=== PATIENT | female | born 1965 | race Hispanic/Latino ===

== ENCOUNTER 2018-10-26 16:04 | Inpatient (IN) | payer MEDICARE, MEDICAID ==
[2018-10-26] MEDS ORDERED: ALPRAZolam 0.5 MG TAB PER TUBE PRN (20:39)
[2018-10-26] MEDS ORDERED: PHOS-NAK 1 PKT PACK PER TUBE PRN (20:45)
[2018-10-26] MEDS ORDERED: Sodium Bicarbonate Tab 325 MG TAB PER TUBE PRN (20:48)
[2018-10-26] MEDS: Calcium Carbonate 500 MG ChewTAB PER TUBE SCH (21:32)
[2018-10-26] MEDS: Carvedilol 3.125 MG TAB PER TUBE SCH (21:34)
[2018-10-26] MEDS: Ezetimibe 10 MG TAB PER TUBE SCH (21:34)
[2018-10-26] MEDS: Famotidine 20 MG TAB PER TUBE SCH (21:35)
[2018-10-26] MEDS: Lantus 1000 UNITS/10 ML VIAL SC SCH (21:36)
[2018-10-26] MEDS: Gabapentin 300 MG CAP PO SCH (21:36)
[2018-10-26] MEDS: Rosuvastatin 10 MG TAB PER TUBE SCH (21:37)
[2018-10-26] MEDS: Lisinopril 10 MG TAB PER TUBE SCH (21:37)
[2018-10-26] MEDS ORDERED: Sodium Chloride 0.9% 20 ML ONE (23:13)
[2018-10-27 05:57] LABS: #Basophils 0.1 thou/uL (0.0-0.2); #Eosinphils 0.1 thou/uL (0.0-0.7); #Lymphocytes 1.4 thou/uL (1.20-3.40); #Monocytes 0.4 thou/uL (0.11-0.59); #Neutrophils 4.6 thou/uL (1.40-6.50); %Basophils 1.1 % (0.0-1.0); %Eosinophils 1.9 % (0.0-10.0); %Lymphocytes 21.3 % (21.0-51.0); %Monocytes 6.5 % (0.0-10.0); %Neutrophils 69.3 % (42.0-75.0); Hemoglobin 9.8 g/dL (12.0-16.0); Mean Corpuscular HGB CONC 31.1 g/dL (32.0-36.0); Mean Corpuscular Volume 83.8 fL (78.0-98.0); Mean Platelet Volume 7.8 fL (7.4-10.4); Platelet Count 376 thou/uL (130-400); RBC Distribution Width 15.7 % (11.5-14.5); Red Blood Cell (RBC) Count 3.76 mill/uL (4.20-5.40); White Blood Cell (WBC) Count 6.6 thou/uL (4.8-10.8)
[2018-10-27 06:07] LABS: AST (SGOT) 38 U/L (5-34); Albumin 2.8 g/dL (3.5-5.0); Alkaline Phosphatase 179 U/L (40-150); Anion Gap 15 mmol/L (10-20); BUN (Urea Nitrogen) 7 mg/dL (9.8-20.1); Bilirubin, Total 0.3 mg/dL (0.2-1.2); Calc. Creatinine Clearance 147 mL/min (70-130); Calcium 9.3 mg/dL (7.8-10.44); Carbon Dioxide 29 mmol/L (22-29); Chloride 99 mmol/L (98-107); Estimated GFR-MDRD Greater than 90; Globulin 3.6 g/dL (2.4-3.5); Glucose 106 mg/dL (70-105); Protein, Total 6.4 g/dL (6.0-8.3); Sodium 139 mmol/L (136-145)
[2018-10-27 06:20] LABS: ALT (SGPT) 40 U/L (8-55)
[2018-10-27] MEDS: Lisinopril 10 MG TAB PER TUBE SCH ×2 (08:27→21:37)
[2018-10-27] MEDS: Gabapentin 300 MG CAP PO SCH ×2 (08:27→21:38)
[2018-10-27] MEDS: Fenofibrate Nanocrystallized 145 MG TAB PER TUBE SCH (08:27)
[2018-10-27] MEDS: Carvedilol 3.125 MG TAB PER TUBE SCH ×2 (08:27→21:38)
[2018-10-27] MEDS: Aspirin Chewable 81 MG TAB PER TUBE SCH (08:27)
[2018-10-27] MEDS: Loratadine 10 MG TAB PER TUBE SCH (08:28)
[2018-10-27] MEDS: Multivitamin W/ Minerals 1 TAB PER TUBE SCH (08:28)
[2018-10-27] MEDS: Hydrocodone-Acetamin 15 ML UDCUP PER TUBE PRN ×2 (08:28→21:40)
[2018-10-27] MEDS: Lantus 1000 UNITS/10 ML VIAL SC SCH ×2 (08:30→21:42)
[2018-10-27] MEDS ORDERED: Dextrose 5% in Water 1,000 ML IV PRN (13:10)
[2018-10-27] MEDS ORDERED: HumaLOG 300 UNITS/3 ML VIAL SC PRN (13:10)
[2018-10-27] MEDS ORDERED: Dextrose 50% Abboject 50 ML SYRINGE SLOW IVP PRN (13:10)
[2018-10-27] MEDS: HumaLOG 300 UNITS/3 ML VIAL SC PRN (13:46)
--- NOTE | 2018-10-27 16:45 | HP ---
CHIEF COMPLAINT: Status post complications from bariatric surgery, now for wound care, J-tube feeding, and close monitoring. BRIEF HISTORY: This is a very pleasant, 53-year-old, female, who is well known to me as I take care of most of her family, was admitted to the [facility] with a gastric leak. She actually had to have a gastric stent placed. She has a J-tube, and she is fed through it, and she is completely n.p.o. She has a midline wound, which requires wound care. Her drains were apparently removed, and she was felt to be a candidate for wound care on continued nutritional support and close monitoring of the wound and possible therapy and transferred here. Currently, the patient is sitting up in her chair and denies any complaints. She states the pain is controlled. She is tolerating her J-tube feeding. No fever or chills. PAST MEDICAL HISTORY: 1. Coronary artery disease. 2. Diabetes mellitus, type 2. 3. Hypertension. 4. Dyslipidemia. 5. Depression and anxiety. PAST SURGICAL HISTORY: 1. Coronary artery bypass grafting. 2. Tubal ligation. 3. Laparoscopic banding with later removal. 4. Pilonidal cystectomy. 5. Gastric sleeve with multiple repairs of gastric perforation as well as placement of J-tube and gastric stenting. MEDICATIONS: She has been transferred here on the following medications: 1. [place] Elixir 15 mL q.4 p.r.n. 2. Xanax 0.5 mg at bedtime p.r.n. 3. Aspirin 81 mg daily. 4. Tums 500 mg at bedtime. 5. Carvedilol 3.125 mg b.i.d. 6. Zetia 10 mg daily. 7. Pepcid 40 mg daily. 8. Fenofibrate 145 mg daily. 9. Diflucan 400 mg daily. 10. Gabapentin 300 mg b.i.d. 11. Lantus 21 units at bedtime and in the morning. 12. Lisinopril 10 mg daily. 13. Loratadine 10 mg daily. 14. Crestor 40 mg daily. 15. Zoloft 100 mg daily. ALLERGIES: TRAMADOL. FAMILY HISTORY: Noncontributory to current admission. PSYCHOSOCIAL HISTORY: No tobacco, alcohol, or recreational drug abuse. REVIEW OF SYSTEMS: CARDIOVASCULAR: Denies any chest pain, shortness of breath, palpitations, PND, orthopnea, or pedal edema. RESPIRATORY: Denies any chronic cough, expectoration, or pleuritic-type chest pain. GASTROINTESTINAL: See history of presenting illness. Denies any nausea, vomiting, diarrhea, hematemesis, melena, or hematochezia. GENITOURINARY: Denies any frequency, urgency, dysuria, or hematuria. CENTRAL NERVOUS SYSTEM: No focal numbness, weakness, or fainting spells. SHEENT: No difficulty with speech, vision, or hearing. She is n.p.o. Skin; denies any rash. PHYSICAL EXAMINATION: GENERAL: A very pleasant, 53-year-old, female, who is well known to me as I take care of her family, who is resting comfortably in chair and denies any complaints. She is alert, awake, and responsive. Her spouse is in the room. VITAL SIGNS: She is afebrile, heart rate 91, respirations 18, oxygen saturation 97% on room air, blood pressure 129/58. CARDIOVASCULAR: S1 and S2 plus. RESPIRATORY: Normal vesicular breath sounds. ABDOMEN: Soft and nontender. Bowel sounds heard in all quadrants. Midline wound with dressing. J-tube site is healthy. EXTREMITIES: Without cyanosis or clubbing. Peripheral pulses are palpable. CENTRAL NERVOUS SYSTEM: Awake and responsive. Cranial nerves 2 through 12 intact. Generalized weakness. LABORATORY VALUES: Show a white count of 6.6, H and H are 9.8 and 31.5. Sodium 139, potassium 4.0, BUN and creatinine 7 and 0.48. AST slightly elevated at 38, alkaline phosphatase slightly elevated at 179. Blood sugars are 94, 101, 268. IMPRESSION: 1. Coronary artery disease. 2. Diabetes mellitus, type 2. 3. Hypertension. 4. Dyslipidemia. 5. Depression and anxiety. 6. Complications from gastric sleeve resulting in gastric perforation requiring placement of gastric stent and J-tube placement and midline wound requiring wound care. PLAN: 1. Continue current medications. 2. Pain control. 3. J-tube feeding with Glucerna. 4. Accu-Cheks a.c. and at bedtime with mild sliding scale coverage. 5. PT and OT to eval and treat and for wound care. 6. Routine laboratory values. 7. Discussed with the patient in detail. All questions were answered. 8. The patient is low risk for DVT given her activity level. Does not need any Lovenox or PlexiPulses. Job ID: [id number]
[2018-10-27] MEDS: Calcium Carbonate 500 MG ChewTAB PER TUBE SCH (21:36)
[2018-10-27] MEDS: Rosuvastatin 10 MG TAB PER TUBE SCH (21:36)
[2018-10-27] MEDS: Famotidine 20 MG TAB PER TUBE SCH (21:37)
[2018-10-27] MEDS: Ezetimibe 10 MG TAB PER TUBE SCH (21:38)
[2018-10-27] MEDS: Fluconazole 40 mg/ml Oral Suspension PER TUBE SCH ×2 (21:39→23:20)
[2018-10-28] MEDS: Hydrocodone-Acetamin 15 ML UDCUP PER TUBE PRN ×3 (07:30→23:24)
[2018-10-28] MEDS ORDERED: Famotidine 20 MG TAB PER TUBE SCH (09:00)
[2018-10-28] MEDS: Multivitamin W/ Minerals 1 TAB PER TUBE SCH (09:17)
[2018-10-28] MEDS: Lisinopril 10 MG TAB PER TUBE SCH ×2 (09:17→20:41)
[2018-10-28] MEDS: Fenofibrate Nanocrystallized 145 MG TAB PER TUBE SCH (09:17)
[2018-10-28] MEDS: Lantus 1000 UNITS/10 ML VIAL SC SCH ×2 (09:18→20:38)
[2018-10-28] MEDS: Loratadine 10 MG TAB PER TUBE SCH (09:18)
[2018-10-28] MEDS: Aspirin Chewable 81 MG TAB PER TUBE SCH (09:18)
[2018-10-28] MEDS: Gabapentin 300 MG CAP PO SCH ×2 (09:18→20:40)
[2018-10-28] MEDS: Carvedilol 3.125 MG TAB PER TUBE SCH ×2 (09:18→20:41)
--- NOTE | 2018-10-28 11:23 | PRG ---
DATE OF SERVICE: 10/28/2018 SUBJECTIVE: Ms. Schultz is doing well except for heartburn. She apparently was on Pepcid b.i.d. and here she is only on once a day. We will change it to b.i.d. There was some confusion as to whether she was on Protonix, but she did get the famotidine 20 b.i.d. that initially ordered. She got one dose this morning and she stated it helped, so we will just switch her to 40 b.i.d. to keep it simpler. No other concerns or questions. OBJECTIVE: VITAL SIGNS: She is afebrile. Heart rate 94, respirations 18, oxygen saturation 98% on room air, blood pressure 129/58. CARDIOVASCULAR SYSTEM: S1 and S2 plus. RESPIRATORY SYSTEM: Normal vesicular breath sounds. ABDOMEN: Soft, nontender. J-tube site is healthy. Abdominal wound with dressing. EXTREMITIES: Without cyanosis or clubbing. CENTRAL NERVOUS SYSTEM: Awake and responsive. Cranial nerves 2 through 12 intact. Grossly nonfocal. IMPRESSION: 1. Gastric leak, status post gastric sleeve surgery, requiring multiple surgeries and stent placement, now with abdominal wound requiring wound care and J-tube feeding. 2. Diabetes mellitus, type 2. 3. Hypertension. 4. Dyslipidemia. 5. Coronary artery disease. 6. Depression and anxiety. 7. Gastroesophageal reflux disease. PLAN: 1. Increase the famotidine to 40 mg b.i.d. We would recommend suspension as she has a J-tube to reduce risk for clogging. 2. Nutritional support via J-tube. 3. Wound care. 4. Decubitus precautions. 5. Accu-Cheks with sliding scale coverage. 6. Routine laboratory values. 7. Discussed with the patient and spouse in detail. All questions answered. Job ID: [id number]
[2018-10-28] MEDS: HumaLOG 300 UNITS/3 ML VIAL SC PRN (11:56)
[2018-10-28] MEDS: Fluconazole 40 mg/ml Oral Suspension PER TUBE SCH (20:39)
[2018-10-28] MEDS: Famotidine 20 MG TAB PER TUBE SCH (20:39)
[2018-10-28] MEDS: Rosuvastatin 10 MG TAB PER TUBE SCH (20:40)
[2018-10-28] MEDS: Ezetimibe 10 MG TAB PER TUBE SCH (20:40)
[2018-10-28] MEDS: Calcium Carbonate 500 MG ChewTAB PER TUBE SCH (20:41)
[2018-10-29] MEDS: Hydrocodone-Acetamin 15 ML UDCUP PER TUBE PRN ×3 (03:32→21:52)
[2018-10-29] MEDS: Gabapentin 300 MG CAP PO SCH ×2 (08:20→21:40)
[2018-10-29] MEDS: Fenofibrate Nanocrystallized 145 MG TAB PER TUBE SCH (08:20)
[2018-10-29] MEDS: Lisinopril 10 MG TAB PER TUBE SCH ×2 (08:20→21:41)
[2018-10-29] MEDS: Multivitamin W/ Minerals 1 TAB PER TUBE SCH (08:21)
[2018-10-29] MEDS: Aspirin Chewable 81 MG TAB PER TUBE SCH (08:23)
[2018-10-29] MEDS: Famotidine 20 MG TAB PER TUBE SCH ×2 (08:23→21:41)
[2018-10-29] MEDS: Loratadine 10 MG TAB PER TUBE SCH (08:24)
[2018-10-29] MEDS: Carvedilol 3.125 MG TAB PER TUBE SCH ×2 (08:24→21:41)
[2018-10-29] MEDS: Lantus 1000 UNITS/10 ML VIAL SC SCH ×2 (08:25→21:39)
[2018-10-29] MEDS: HumaLOG 300 UNITS/3 ML VIAL SC PRN (12:53)
--- NOTE | 2018-10-29 16:18 | PRG ---
DATE OF SERVICE: 10/29/2018 SUBJECTIVE: Ms. Schultz is doing well. Her heartburn is much improved with famotidine twice daily. She would like something for sleep like melatonin. Nursing also wants to change her multivitamin to liquid form, so that we do not clog up the J-tube, which is a good idea. OBJECTIVE: VITAL SIGNS: She is afebrile. Heart rate is 99, respirations 18, oxygen saturation 99% on room air, blood pressure 132/63. CARDIOVASCULAR: S1-S2 plus. RESPIRATORY: Normal vesicular breath sounds. ABDOMEN: Soft, nontender. Bowel sounds heard in all quadrants. J-tube site is healthy. Wound with dressing. EXTREMITIES: Without cyanosis or clubbing. Peripheral pulses are palpable. CENTRAL NERVOUS SYSTEM: Grossly nonfocal. Awake and responsive. Cranial nerves 2 through 12 intact. LABORATORY DATA: Blood sugars are 136, 134, 146, and 167. IMPRESSION: 1. Gastric leak requiring gastric stent placement and multiple surgery. 2. J-tube placement to give the stomach the rest and to help with the healing process due to the gastric leak. 3. Diabetes mellitus type 2. 4. Hypertension. 5. Dyslipidemia. 6. Coronary artery disease. 7. Anxiety and depression. 8. Insomnia. PLAN: 1. Continue current medications. 2. Add melatonin 10 mg daily. 3. Change multivitamin to liquid. 4. Nutritional support through J-tube. 5. Monitor Accu-Cheks with sliding scale coverage. 6. Wound care. 7. Continue to stay active. 8. Weekly CBC and CMP. 9. Discussed with the patient in detail. 10. No family at bedside. Job ID: [id number]
[2018-10-29] MEDS: Fluconazole 40 mg/ml Oral Suspension PER TUBE SCH (21:39)
[2018-10-29] MEDS: Ezetimibe 10 MG TAB PER TUBE SCH (21:40)
[2018-10-29] MEDS: Rosuvastatin 10 MG TAB PER TUBE SCH (21:40)
[2018-10-29] MEDS: Melatonin 3 MG TAB PO PRN (21:41)
[2018-10-29] MEDS: Calcium Carbonate 500 MG ChewTAB PER TUBE SCH (21:41)
[2018-10-30] MEDS: Gabapentin 300 MG CAP PO SCH ×2 (09:51→21:19)
[2018-10-30] MEDS: Famotidine 20 MG TAB PER TUBE SCH ×2 (09:51→21:19)
[2018-10-30] MEDS: Lisinopril 10 MG TAB PER TUBE SCH ×2 (09:51→21:19)
[2018-10-30] MEDS: Fenofibrate Nanocrystallized 145 MG TAB PER TUBE SCH (09:51)
[2018-10-30] MEDS: Aspirin Chewable 81 MG TAB PER TUBE SCH (09:51)
[2018-10-30] MEDS: Multivitamin W/ Minerals 1 TAB PER TUBE SCH (09:51)
[2018-10-30] MEDS: Carvedilol 3.125 MG TAB PER TUBE SCH ×2 (09:51→21:19)
[2018-10-30] MEDS: Loratadine 10 MG TAB PER TUBE SCH (09:51)
[2018-10-30] MEDS: Lantus 1000 UNITS/10 ML VIAL SC SCH ×2 (09:52→21:21)
[2018-10-30] MEDS: Hydrocodone-Acetamin 15 ML UDCUP PER TUBE PRN ×2 (10:04→21:17)
[2018-10-30] MEDS: HumaLOG 300 UNITS/3 ML VIAL SC PRN (12:00)
[2018-10-30] MEDS: Loperamide HCl 2 MG CAP PO PRN (17:12)
[2018-10-30] MEDS: Calcium Carbonate 500 MG ChewTAB PER TUBE SCH (21:18)
[2018-10-30] MEDS: Melatonin 3 MG TAB PO PRN (21:18)
[2018-10-30] MEDS: Rosuvastatin 10 MG TAB PER TUBE SCH (21:19)
[2018-10-30] MEDS: Ezetimibe 10 MG TAB PER TUBE SCH (21:20)
[2018-10-30] MEDS: Fluconazole 40 mg/ml Oral Suspension PER TUBE SCH (21:21)
[2018-10-31] MEDS: Aspirin Chewable 81 MG TAB PER TUBE SCH (08:35)
[2018-10-31] MEDS: Carvedilol 3.125 MG TAB PER TUBE SCH ×2 (08:36→21:53)
[2018-10-31] MEDS: Gabapentin 300 MG CAP PO SCH ×2 (08:36→21:53)
[2018-10-31] MEDS: Fenofibrate Nanocrystallized 145 MG TAB PER TUBE SCH (08:36)
[2018-10-31] MEDS: Lantus 1000 UNITS/10 ML VIAL SC SCH ×2 (08:36→21:57)
[2018-10-31] MEDS: Loratadine 10 MG TAB PER TUBE SCH (08:37)
[2018-10-31] MEDS: Lisinopril 10 MG TAB PER TUBE SCH ×2 (08:37→21:51)
[2018-10-31] MEDS: Multivitamin W/ Minerals 1 TAB PER TUBE SCH (08:37)
[2018-10-31] MEDS: Hydrocodone-Acetamin 15 ML UDCUP PER TUBE PRN ×3 (08:38→21:57)
[2018-10-31] MEDS ORDERED: Sodium Chloride 0.9% 10 ML ONE (09:13)
[2018-10-31] MEDS: Pantoprazole 40 MG VIAL IVP SCH ×2 (09:37→21:51)
--- NOTE | 2018-10-31 14:00 | PRG ---
DATE OF SERVICE: 10/31/2018 SUBJECTIVE: Ms. Schultz is doing well except for breakthrough gastritis. She was switched to IV Protonix, and during IV Protonix, she had an episode of flushing, lightheadedness, and nausea, which looks like a vasovagal episode. She is up in her chair currently. She apparently accidentally drank about 3 to 4 mL of water and she is aware of the risks. No abdominal pain. OBJECTIVE: VITAL SIGNS: She is afebrile. Heart rate 97, respirations 20, oxygen saturation 95% on room air, blood pressure 120/82. CARDIOVASCULAR SYSTEM: S1 and S2 plus. RESPIRATORY SYSTEMS: Normal vesicular breath sounds. ABDOMEN: Soft and nontender. Bowel sounds heard in all quadrants. Abdominal incision with dressing. J-tube site is healthy. EXTREMITIES: Without cyanosis or clubbing. Peripheral pulses are palpable. LABORATORY DATA: Blood sugars are 138, 141, 117 and 168. IMPRESSION: 1. Gastric leak, status post bariatric surgery, requiring extensive surgeries, placement of gastric stent and now n.p.o. with J-tube feeding. 2. Gastritis, possibly alkaline, but she states that Protonix helps, so we will continue Protonix. 3. Diabetes mellitus, type 2. 4. Hypertension. 5. Dyslipidemia. 6. Coronary artery disease. 7. Depression and anxiety. PLAN: 1. Discontinue famotidine and continue IV Protonix. 2. Recheck CBC and CMP in the morning. 3. Continue nutritional support. 4. N.p.o. 5. Stay active. 6. J-tube care. 7. Wound care. 8. Modified barium swallow, 3 weeks from date of admission. Discussed with the patient and spouse in detail. All questions answered. Continue Accu-Cheks with sliding scale coverage. Job ID: [id number]
[2018-10-31] MEDS ORDERED: Pantoprazole 40 MG VIAL ONE (21:48)
[2018-10-31] MEDS: Calcium Carbonate 500 MG ChewTAB PER TUBE SCH (21:52)
[2018-10-31] MEDS: Rosuvastatin 10 MG TAB PER TUBE SCH (21:52)
[2018-10-31] MEDS: Ezetimibe 10 MG TAB PER TUBE SCH (21:52)
[2018-10-31] MEDS: Fluconazole 40 mg/ml Oral Suspension PER TUBE SCH (21:53)
[2018-10-31] MEDS: Melatonin 3 MG TAB PO PRN (21:53)
[2018-11-01 05:45] LABS: Anion Gap 13 mmol/L (10-20); BUN (Urea Nitrogen) 10 mg/dL (9.8-20.1); Calc. Creatinine Clearance 135 mL/min (70-130); Carbon Dioxide 30 mmol/L (22-29); Chloride 98 mmol/L (98-107); Estimated GFR-MDRD Greater than 90; Glucose 139 mg/dL (70-105); Potassium 4.3 mmol/L (3.5-5.1); Sodium 137 mmol/L (136-145)
[2018-11-01 05:54] LABS: Anisocytosis SLIGHT = 6-15 cells (100X) (0-5/hpf); Band 14 % (5-11); Eosinophils 2 % (0-10); Hemoglobin 8.4 g/dL (12.0-16.0); Hypochromia SLIGHT = 6-15 cells (100X) (0-5/hpf); Lymphocytes 40 % (21-51); MDiff Complete? YES; Mean Corpuscular HGB CONC 31.2 g/dL (32.0-36.0); Mean Corpuscular Volume 83.4 fL (78.0-98.0); Mean Platelet Volume 8.1 fL (7.4-10.4); Metamyelocyte 2 % (0-0); Monocytes 2 % (0-10); Neutrophil 40 % (42-75); Platelet Count 324 thou/uL (130-400); Platelet Morphology Comment Appears Adequate; RBC Distribution Width 16.3 % (11.5-14.5); Red Blood Cell (RBC) Count 3.23 mill/uL (4.20-5.40)
[2018-11-01] MEDS ORDERED: Pantoprazole 40 MG VIAL ONE (08:27)
[2018-11-01] MEDS ORDERED: Sodium Chloride 0.9% 10 ML ONE (08:32)
[2018-11-01] MEDS: Aspirin Chewable 81 MG TAB PER TUBE SCH (08:36)
[2018-11-01] MEDS: Gabapentin 300 MG CAP PO SCH ×2 (08:36→21:32)
[2018-11-01] MEDS: Lantus 1000 UNITS/10 ML VIAL SC SCH ×2 (08:36→21:28)
[2018-11-01] MEDS: Fenofibrate Nanocrystallized 145 MG TAB PER TUBE SCH (08:36)
[2018-11-01] MEDS: Carvedilol 3.125 MG TAB PER TUBE SCH ×2 (08:36→21:33)
[2018-11-01] MEDS: Multivitamin W/ Minerals 1 TAB PER TUBE SCH (08:37)
[2018-11-01] MEDS: Lisinopril 10 MG TAB PER TUBE SCH ×2 (08:37→21:27)
[2018-11-01] MEDS: Loratadine 10 MG TAB PER TUBE SCH (08:37)
[2018-11-01] MEDS: Hydrocodone-Acetamin 15 ML UDCUP PER TUBE PRN ×3 (08:38→21:27)
[2018-11-01] MEDS: Pantoprazole 40 MG VIAL IVP SCH ×2 (08:38→21:30)
[2018-11-01] MEDS: Sodium Chloride 0.9% (PF) 10 ML VIAL FS PRN (08:45)
[2018-11-01 13:00] VITALS: BMI 31.4
--- NOTE | 2018-11-01 13:57 | PRG ---
DATE OF SERVICE: 11/01/2018 SUBJECTIVE: Ms. Schultz is doing well. She states that she has had no further issues with heartburn since she has been on Protonix 40 mg IV b.i.d. She is tolerating her tube feeds. No fever or chills. Staying active and walking around. No concerns or questions. OBJECTIVE: VITAL SIGNS: She is afebrile. Heart rate 102, respirations 20, oxygen saturation 97% on room air, and blood pressure 135/63. CARDIOVASCULAR SYSTEM: S1 and S2 plus. RESPIRATORY SYSTEMS: Normal vesicular breath sounds. ABDOMEN: Soft, nontender. Bowel sounds heard in all quadrants. Abdominal wound with dressing. J-tube site is healthy. EXTREMITIES: Without cyanosis or clubbing. CENTRAL NERVOUS SYSTEM: Awake and responsive. Cranial nerves 2 through 12 intact. Generalized weakness. LABORATORY VALUES: White count is 7, H and H are is 8.4 and 26.9. Sodium 137, potassium 4.3, BUN and creatinine are 10 and 0.52. Blood sugars are 142, 143, 157, and 189. IMPRESSION: 1. Gastric leak, status post stent placement and extensive surgery. 2. Open abdominal wound, requiring wound care. 3. Stomach rest, requiring J-tube placement. 4. Diabetes mellitus, type 2, well controlled. 5. Hypertension. 6. Dyslipidemia. 7. Coronary artery disease. 8. Depression and anxiety. 9. Acid reflux and gastritis, doing much better with Protonix 40 mg IV b.i.d. PLAN: 1. Continue current medications. 2. Nutritional support through J-tube. 3. Wound care. 4. Decubitus precautions. 5. Stay active. 6. Monitor blood sugars. 7. Weekly laboratory values. 8. Discussed with the patient and nursing in detail. All questions answered. Job ID: [id number]
[2018-11-01] MEDS: Fluconazole 40 mg/ml Oral Suspension PER TUBE SCH (21:26)
[2018-11-01] MEDS: Rosuvastatin 10 MG TAB PER TUBE SCH (21:32)
[2018-11-01] MEDS: Ezetimibe 10 MG TAB PER TUBE SCH (21:32)
[2018-11-01] MEDS: Melatonin 3 MG TAB PO PRN (21:33)
[2018-11-01] MEDS: Calcium Carbonate 500 MG ChewTAB PER TUBE SCH (21:33)
[2018-11-02] MEDS: HumaLOG 300 UNITS/3 ML VIAL SC PRN ×3 (05:13→17:22)
[2018-11-02] MEDS: Multivitamin W/ Minerals 1 TAB PER TUBE SCH (08:52)
[2018-11-02] MEDS: Carvedilol 3.125 MG TAB PER TUBE SCH ×2 (08:53→21:07)
[2018-11-02] MEDS: Fenofibrate Nanocrystallized 145 MG TAB PER TUBE SCH (08:53)
[2018-11-02] MEDS: Aspirin Chewable 81 MG TAB PER TUBE SCH (08:53)
[2018-11-02] MEDS: Loratadine 10 MG TAB PER TUBE SCH (08:53)
[2018-11-02] MEDS: Gabapentin 300 MG CAP PO SCH ×2 (08:53→21:08)
[2018-11-02] MEDS: Lisinopril 10 MG TAB PER TUBE SCH ×2 (08:53→21:08)
[2018-11-02] MEDS: Lantus 1000 UNITS/10 ML VIAL SC SCH (08:53)
[2018-11-02] MEDS: Hydrocodone-Acetamin 15 ML UDCUP PER TUBE PRN ×3 (08:54→21:12)
[2018-11-02] MEDS: Pantoprazole 40 MG VIAL IVP SCH (08:56)
[2018-11-02] MEDS: Sodium Chloride 0.9% (PF) 10 ML VIAL FS PRN (08:56)
[2018-11-02] MEDS ORDERED: Sodium Chloride 0.9% 20 ML ONE (09:00)
[2018-11-02] MEDS: Calcium Carbonate 500 MG ChewTAB PER TUBE SCH (21:07)
[2018-11-02] MEDS: Ezetimibe 10 MG TAB PER TUBE SCH (21:08)
[2018-11-02] MEDS: Pantoprazole 40 MG GRANULES PACKET PER TUBE SCH (21:09)
[2018-11-02] MEDS: Rosuvastatin 10 MG TAB PER TUBE SCH (21:09)
[2018-11-02] MEDS ORDERED: Sodium Bicarbonate Tab 325 MG TAB PER TUBE PRN (22:09)
[2018-11-03] MEDS: Lantus 1000 UNITS/10 ML VIAL SC SCH ×3 (01:13→21:39)
[2018-11-03] MEDS: HumaLOG 300 UNITS/3 ML VIAL SC PRN ×2 (05:50→12:33)
[2018-11-03] MEDS: Hydrocodone-Acetamin 15 ML UDCUP PER TUBE PRN ×3 (07:48→16:54)
[2018-11-03] MEDS: Carvedilol 3.125 MG TAB PER TUBE SCH ×2 (09:42→21:38)
[2018-11-03] MEDS: Fenofibrate Nanocrystallized 145 MG TAB PER TUBE SCH (09:42)
[2018-11-03] MEDS: Gabapentin 300 MG CAP PO SCH ×2 (09:42→21:38)
[2018-11-03] MEDS: Lisinopril 10 MG TAB PER TUBE SCH ×2 (09:42→21:39)
[2018-11-03] MEDS: Aspirin Chewable 81 MG TAB PER TUBE SCH (09:43)
[2018-11-03] MEDS: Multivitamin W/ Minerals 1 TAB PER TUBE SCH (09:43)
[2018-11-03] MEDS: Pantoprazole 40 MG GRANULES PACKET PER TUBE SCH (09:43)
[2018-11-03] MEDS: Loratadine 10 MG TAB PER TUBE SCH (09:43)
[2018-11-03 13:04] LABS: Mean Corpuscular HGB CONC 31.6 g/dL (32.0-36.0); Mean Corpuscular Hemoglobin 26.3 pg (27.0-31.0); Mean Corpuscular Volume 83.2 fL (78.0-98.0); Mean Platelet Volume 8.1 fL (7.4-10.4); Platelet Count 352 thou/uL (130-400); RBC Distribution Width 16.5 % (11.5-14.5); Red Blood Cell (RBC) Count 3.41 mill/uL (4.20-5.40)
[2018-11-03 13:27] LABS: #Basophils 0.1 thou/uL (0.0-0.2); #Eosinphils 0.4 thou/uL (0.0-0.7); #Lymphocytes 2.1 thou/uL (1.20-3.40); #Monocytes 1.1 thou/uL (0.11-0.59); #Neutrophils 4.3 thou/uL (1.40-6.50); %Basophils 1.3 % (0.0-1.0); %Lymphocytes 26.5 % (21.0-51.0); %Monocytes 13.4 % (0.0-10.0); %Neutrophils 53.9 % (42.0-75.0); Differential Comment SCANNED
--- NOTE | 2018-11-03 13:51 | PRG ---
DATE OF SERVICE: 11/03/2018 SUBJECTIVE: Ms. Schultz is doing the same. Denies any complaints other than pain, and the hydrocodone suspension is helping. Discussed with nursing and they apparently are noticing some mild odor to the drainage from her abdominal wound. They have sent it out for culture and I advised them to do a CBC stat. No fever or chills. For some reason, her Protonix was changed to via tube and that was causing some occlusion issues with the J-tube and I had the nursing switch it back to IV. OBJECTIVE: VITAL SIGNS: She is afebrile, heart rate 105, respirations 20, oxygen saturation 98% on room air, and blood pressure 135/63. CARDIOVASCULAR SYSTEM: S1 and S2 plus. RESPIRATORY SYSTEM: Normal vesicular breath sounds. ABDOMEN: Soft. Minimal tenderness. J-tube site is healthy. Abdominal wound with dressing. EXTREMITIES: Without cyanosis or clubbing. CENTRAL NERVOUS SYSTEM: Awake and responsive. Cranial nerves 2 through 12 intact. LABORATORY VALUES: White count is 8, H and H are 9 and 28.4. Accu-Chek shows 192, 228, 160, 128, 182, and 218. IMPRESSION: 1. Abdominal wound, requiring wound care. Rule out infection. 2. Gastric leak, requiring gastric stent placement and now n.p.o. 3. J-tube for nutrition. 4. Diabetes mellitus, type 2. 5. Hypertension. 6. Dyslipidemia. 7. Coronary artery disease. 8. Depression and anxiety. PLAN: 1. Await microbiology of the wound culture. Currently, no clinical signs of infection other than the mild change in odor. 2. Empiric Bactrim since initial culture grew Stenotrophomonas. It was sensitive to Bactrim, but we are going to hold it unless there are any further signs. 3. Nutritional support. 4. DVT and stress ulcer prophylaxis. 5. Decubitus precautions. 6. Accu-Cheks. 7. Pain control. 8. J-tube and wound care. 9. Discussed with the patient and nursing. Job ID: [id number]
[2018-11-03] MEDS ORDERED: Sodium Chloride 0.9% 20 ML ONE (20:50)
[2018-11-03] MEDS: Ondansetron PF 4 MG/2 ML Vial IVP PRN (21:00)
[2018-11-03] MEDS: Sodium Chloride 0.9% (PF) 10 ML VIAL FS PRN (21:05)
[2018-11-03] MEDS: Pantoprazole 40 MG VIAL IVP SCH (21:05)
[2018-11-03] MEDS: Calcium Carbonate 500 MG ChewTAB PER TUBE SCH (21:38)
[2018-11-03] MEDS: Ezetimibe 10 MG TAB PER TUBE SCH (21:38)
[2018-11-03] MEDS: Rosuvastatin 10 MG TAB PER TUBE SCH (21:39)
[2018-11-04] MEDS: HumaLOG 300 UNITS/3 ML VIAL SC PRN ×2 (05:13→12:38)
[2018-11-04] MEDS ORDERED: Sodium Chloride 0.9% 10 ML ONE (08:30)
[2018-11-04] MEDS: Ondansetron PF 4 MG/2 ML Vial IVP PRN ×2 (09:17→20:09)
[2018-11-04] MEDS: Carvedilol 3.125 MG TAB PER TUBE SCH ×2 (09:18→20:14)
[2018-11-04] MEDS: Loratadine 10 MG TAB PER TUBE SCH (09:18)
[2018-11-04] MEDS: Pantoprazole 40 MG VIAL IVP SCH ×2 (09:18→20:11)
[2018-11-04] MEDS: Fenofibrate Nanocrystallized 145 MG TAB PER TUBE SCH (09:19)
[2018-11-04] MEDS: Multivitamin W/ Minerals 1 TAB PER TUBE SCH (09:19)
[2018-11-04] MEDS: Gabapentin 300 MG CAP PO SCH ×2 (09:19→20:13)
[2018-11-04] MEDS: Lisinopril 10 MG TAB PER TUBE SCH ×2 (09:19→20:13)
[2018-11-04] MEDS: Aspirin Chewable 81 MG TAB PER TUBE SCH (09:19)
[2018-11-04] MEDS: Lantus 1000 UNITS/10 ML VIAL SC SCH ×2 (09:21→21:34)
--- NOTE | 2018-11-04 10:26 | PRG ---
DATE OF SERVICE: 11/04/2018 SUBJECTIVE: Ms. Schultz is doing well. Denies any complaints. Resting comfortably. There was some concern for a more foul smelling drainage from her wound yesterday, so it was sent up for cultures. Stat CBC was done, which showed normal white count. Clinically, no signs of infection. I looked at the wound today and the abdominal wound is healthy. There is minimal slough, it was less than 5%. No purulent drainage. No erythema suggestive of infection. I also talked to the wound care nurse from therapy, who has been doing the wound and she also feels that it is healing as expected. It still has enough drainage that wound dressing needs to be changed twice daily. She does have an appointment with Dr. Yuen next Wednesday. Her wound culture preliminary is growing gram-negative rods, but I am not going to start her on any antibiotics since this is not a sterile wound and not unusual to have contamination. Discussed with the patient and and all questions answered. OBJECTIVE: VITAL SIGNS: She is afebrile, heart rate is 107, respirations 20, oxygen saturation 95%, blood pressure is 130/60. When she was walking, her heart rate went up to 113. CARDIOVASCULAR SYSTEM: S1 and S2 plus. RESPIRATORY SYSTEM: Normal vesicular breath sounds. ABDOMEN: Soft. Minimal tenderness. Bowel sounds heard in all quadrants. J-tube site is healthy. EXTREMITIES: Without cyanosis or clubbing. CENTRAL NERVOUS SYSTEM: Awake and responsive. Cranial nerves 2 through 12 intact. Generalized weakness. LABORATORY DATA: White count is 8, H and H are 9 and 28, for this is from yesterday. Blood sugars are 128, 182, 218, 129, and 169. IMPRESSION: 1. Abdominal wound healing nicely without any evidence for infection. 2. Gastric leak requiring gastric stent and J-tube placement. 3. Diabetes mellitus, type 2. 4. Hypertension. 5. Dyslipidemia. 6. Coronary artery disease. 7. Depression and anxiety. PLAN: 1. Continue current medications. 2. Wound care. 3. Nutritional support through J-tube. 4. N.p.o. 5. No need for antibiotics at this time. 6. Stay active. 7. Followup appointment with Dr. Yuen on Wednesday. 8. Continue wound care twice daily. 9. Dr. Blanca on-call this weekend. Job ID: [id number]
[2018-11-04] MEDS: Hydrocodone-Acetamin 15 ML UDCUP PER TUBE PRN (17:35)
[2018-11-04] MEDS: Calcium Carbonate 500 MG ChewTAB PER TUBE SCH (20:14)
[2018-11-04] MEDS: Rosuvastatin 10 MG TAB PER TUBE SCH (20:14)
[2018-11-04] MEDS: Ezetimibe 10 MG TAB PER TUBE SCH (20:14)
[2018-11-05] MEDS: HumaLOG 300 UNITS/3 ML VIAL SC PRN ×3 (05:21→17:24)
[2018-11-05] MEDS: Hydrocodone-Acetamin 15 ML UDCUP PER TUBE PRN ×3 (09:16→19:12)
[2018-11-05] MEDS: Aspirin Chewable 81 MG TAB PER TUBE SCH (09:17)
[2018-11-05] MEDS: Gabapentin 300 MG CAP PO SCH ×2 (09:18→20:55)
[2018-11-05] MEDS: Fenofibrate Nanocrystallized 145 MG TAB PER TUBE SCH (09:18)
[2018-11-05] MEDS: Lisinopril 10 MG TAB PER TUBE SCH ×2 (09:18→20:57)
[2018-11-05] MEDS: Loratadine 10 MG TAB PER TUBE SCH (09:18)
[2018-11-05] MEDS: Carvedilol 3.125 MG TAB PER TUBE SCH ×2 (09:18→20:55)
[2018-11-05] MEDS: Lantus 1000 UNITS/10 ML VIAL SC SCH ×2 (09:18→21:11)
[2018-11-05] MEDS: Multivitamin W/ Minerals 1 TAB PER TUBE SCH (09:18)
[2018-11-05] MEDS: Pantoprazole 40 MG VIAL IVP SCH ×2 (09:19→20:45)
[2018-11-05] MEDS: Sodium Chloride 0.9% (PF) 10 ML VIAL FS PRN ×2 (09:19→20:45)
[2018-11-05] MEDS ORDERED: Sodium Chloride 0.9% 10 ML ONE (10:02)
[2018-11-05] MEDS: Ondansetron PF 4 MG/2 ML Vial IVP PRN ×2 (10:05→19:11)
[2018-11-05] MEDS ORDERED: Sodium Chloride 0.9% 20 ML ONE (19:10)
[2018-11-05 19:11] LABS: #Basophils 0.1 thou/uL (0.0-0.2); #Eosinphils 0.5 thou/uL (0.0-0.7); #Monocytes 1.1 thou/uL (0.11-0.59); #Neutrophils 5.4 thou/uL (1.40-6.50); %Basophils 0.9 % (0.0-1.0); %Eosinophils 5.4 % (0.0-10.0); %Lymphocytes 21.9 % (21.0-51.0); %Monocytes 11.9 % (0.0-10.0); %Neutrophils 59.8 % (42.0-75.0); Hemoglobin 8.9 g/dL (12.0-16.0); Mean Corpuscular HGB CONC 31.4 g/dL (32.0-36.0); Mean Corpuscular Hemoglobin 26.2 pg (27.0-31.0); Mean Corpuscular Volume 83.3 fL (78.0-98.0); Mean Platelet Volume 7.7 fL (7.4-10.4); Platelet Count 332 thou/uL (130-400); Red Blood Cell (RBC) Count 3.39 mill/uL (4.20-5.40); White Blood Cell (WBC) Count 9.1 thou/uL (4.8-10.8)
[2018-11-05 19:30] LABS: Lactic Acid 1.3 mmol/L (0.5-2.2)
[2018-11-05 19:37] LABS: ALT (SGPT) 15 U/L (8-55); AST (SGOT) 20 U/L (5-34); Albumin 2.7 g/dL (3.5-5.0); Alkaline Phosphatase 95 U/L (40-150); Anion Gap 16 mmol/L (10-20); BUN (Urea Nitrogen) 11 mg/dL (9.8-20.1); Bilirubin, Total 0.3 mg/dL (0.2-1.2); Calc. Creatinine Clearance 123 mL/min (70-130); Calcium 8.9 mg/dL (7.8-10.44); Carbon Dioxide 26 mmol/L (22-29); Chloride 97 mmol/L (98-107); Estimated GFR-MDRD Greater than 90; Globulin 3.7 g/dL (2.4-3.5); Glucose 133 mg/dL (70-105); Potassium 4.1 mmol/L (3.5-5.1); Protein, Total 6.4 g/dL (6.0-8.3); Sodium 135 mmol/L (136-145)
[2018-11-05] MEDS: Ezetimibe 10 MG TAB PER TUBE SCH (20:55)
[2018-11-05] MEDS: Rosuvastatin 10 MG TAB PER TUBE SCH (20:55)
[2018-11-05] MEDS: Calcium Carbonate 500 MG ChewTAB PER TUBE SCH (20:55)
--- NOTE | 2018-11-06 08:29 | PRG ---
DATE OF SERVICE: 11/05/2018 SUBJECTIVE: The patient is an unfortunate 53-year-old female, who has undergone a gastric sleeve, but developed complications of leakage of the gastric surgery requiring gastric stent and J-tube placement. She has comorbidities of type 2 diabetes, which has been well controlled and hypertension, but at present, she is on carvedilol and lisinopril and is having borderline low blood pressure. She has been found to have an MRSA in the wound, but has had no evidence of sepsis or cellulitis around the wound. She is feeling well, walking in the room. No complaints. LABORATORY DATA: Shows sodium 135, potassium 4.1, chloride 97, bicarb 26, BUN 11, creatinine 0.58, glucose 133, lactate 1.3, calcium 8.9, and albumin 2.7, which is slightly lower than last week. Abdominal wound is open and deep, but appears to be very clean. No evidence of slough or drainage. ASSESSMENT: 1. Large abdominal wound healing slowly and tension with no evidence of infection. 2. Gastric sleeve, status post perforation requiring stent and J-tube treatment. Tolerating well. 3. Type 2 diabetes with adequate control. 4. Hypertension, but now with hypotension on carvedilol and lisinopril. PLAN: Decrease dose of lisinopril to 10 mg daily and continue carvedilol at 3.125 twice daily. Continue off antibiotics and monitor closely. Job ID: [id number]
[2018-11-06] MEDS ORDERED: Sodium Chloride 0.9% 10 ML ONE (08:42)
[2018-11-06] MEDS: Hydrocodone-Acetamin 15 ML UDCUP PER TUBE PRN ×3 (09:21→20:35)
[2018-11-06] MEDS: Pantoprazole 40 MG VIAL IVP SCH ×2 (09:29→20:41)
[2018-11-06] MEDS: Sodium Chloride 0.9% (PF) 10 ML VIAL FS PRN ×2 (09:29→20:41)
[2018-11-06] MEDS: Fenofibrate Nanocrystallized 145 MG TAB PER TUBE SCH (09:38)
[2018-11-06] MEDS: Gabapentin 300 MG CAP PO SCH ×2 (09:38→20:47)
[2018-11-06] MEDS: Loratadine 10 MG TAB PER TUBE SCH (09:38)
[2018-11-06] MEDS: Aspirin Chewable 81 MG TAB PER TUBE SCH (09:38)
[2018-11-06] MEDS: Lisinopril 10 MG TAB PER TUBE SCH (09:38)
[2018-11-06] MEDS: Lantus 1000 UNITS/10 ML VIAL SC SCH ×2 (09:39→20:49)
[2018-11-06] MEDS: Carvedilol 3.125 MG TAB PER TUBE SCH ×2 (09:39→20:49)
[2018-11-06] MEDS: Multivitamin W/ Minerals 1 TAB PER TUBE SCH (09:40)
[2018-11-06] MEDS: HumaLOG 300 UNITS/3 ML VIAL SC PRN ×2 (12:19→17:21)
[2018-11-06] MEDS ORDERED: Sodium Chloride 0.9% 20 ML ONE (20:31)
[2018-11-06] MEDS: Vancomycin HCl 1 GM in Sodium Chloride 0.9% 250 ML 250 ML IVPB SCH (20:34)
[2018-11-06] MEDS: Ezetimibe 10 MG TAB PER TUBE SCH (20:47)
[2018-11-06] MEDS: Calcium Carbonate 500 MG ChewTAB PER TUBE SCH (20:47)
[2018-11-06] MEDS: Rosuvastatin 10 MG TAB PER TUBE SCH (20:48)
--- NOTE | 2018-11-06 21:36 | PRG ---
DATE OF SERVICE: 11/06/2018 SUBJECTIVE: The patient complains of increased foul-smelling drainage from her abdomen with no fever, chills, or tenderness. OBJECTIVE: VITAL SIGNS: Show blood pressure is 120/65, temperature is 97, pulse 97, respirations 20, O2 sats 97% on room air. LABORATORY DATA: Shows Accu-Cheks slightly elevated at 147, 232. White count yesterday was 9100. Cultures, however, showing are growing Enterobacter, Klebsiella, MRSA, and presumptive Enterococcus. Wound appears to be having more foul-smelling drainage, increasing daily. ASSESSMENT: 1. Increasing drainage from abdominal incision site of previous peritonitis. 2. Gastric sleeve, status post perforation requiring stent and J-tube treatment. 3. Type 2 diabetes, fair control, slightly increased recently. 4. Vital signs stable with previous history of hypertension. PLAN: 1. Start on broad-spectrum IV antibiotics with vancomycin and Zosyn to cover all the organisms as she does appear to be having signs of active infection with foul-smelling discharge increasing. We will discuss with Dr. Adarsh hay, who will discuss with her surgeon tomorrow, but we will start antibiotics tonight. 2. Type 2 diabetes control. 3. Hypertension control. Job ID: [id number]
[2018-11-07] MEDS: Piperacillin/Tazobactam 3.375 GM in Sodium Chloride 0.9% 100 ML IVPB SCH ×5 (00:02→23:59)
[2018-11-07] MEDS: HumaLOG 300 UNITS/3 ML VIAL SC PRN ×2 (05:24→14:04)
[2018-11-07] MEDS: Vancomycin HCl 1 GM in Sodium Chloride 0.9% 250 ML 250 ML IVPB SCH ×2 (08:50→20:38)
[2018-11-07] MEDS: Sodium Chloride 0.9% (PF) 10 ML VIAL FS PRN (08:51)
[2018-11-07] MEDS: Pantoprazole 40 MG VIAL IVP SCH ×2 (08:51→20:36)
[2018-11-07] MEDS: Lantus 1000 UNITS/10 ML VIAL SC SCH ×2 (08:52→20:36)
[2018-11-07] MEDS: Multivitamin W/ Minerals 1 TAB PER TUBE SCH (08:54)
[2018-11-07] MEDS: Gabapentin 300 MG CAP PO SCH ×2 (08:54→20:35)
[2018-11-07] MEDS: Fenofibrate Nanocrystallized 145 MG TAB PER TUBE SCH (08:54)
[2018-11-07] MEDS: Carvedilol 3.125 MG TAB PER TUBE SCH ×2 (08:55→20:35)
[2018-11-07] MEDS: Lisinopril 10 MG TAB PER TUBE SCH (08:55)
[2018-11-07] MEDS: Aspirin Chewable 81 MG TAB PER TUBE SCH (08:55)
[2018-11-07] MEDS: Loratadine 10 MG TAB PER TUBE SCH (08:55)
[2018-11-07] MEDS: Hydrocodone-Acetamin 15 ML UDCUP PER TUBE PRN ×3 (11:02→20:38)
--- NOTE | 2018-11-07 13:19 | PRG ---
DATE OF SERVICE: 11/07/2018 SUBJECTIVE: Ms. Schultz has been started on vancomycin and Zosyn over the weekend since her drainage became more foul smelling. Cultures grew Enterococcus, MRSA, and Klebsiella. She remains afebrile. She denies any worsening pain and her white count has remained normal. She has an appointment with Dr. Yuen tomorrow and the plan is for her to go before the wound is redressed, so he can see the amount of drainage. Nursing is aware. OBJECTIVE: VITAL SIGNS: She is afebrile. Heart rate is 89, respirations 20, oxygen saturation 96% on room air, blood pressure 119/58. CARDIOVASCULAR SYSTEM: S1 and S2 plus. RESPIRATORY SYSTEM: Normal vesicular breath sounds. ABDOMEN: Soft and nontender. Bowel sounds heard in all quadrants. Abdominal wound with dressing. J-tube site is healthy. EXTREMITIES: Without cyanosis or clubbing. CENTRAL NERVOUS SYSTEM: Awake and responsive. Cranial nerves 2 through 12 intact. Generalized weakness. IMPRESSION: 1. Gastric leak requiring stent placement and n.p.o. 2. Diabetes mellitus, type 2. 3. Hypertension. 4. Dyslipidemia. 5. Coronary artery disease. 6. Depression and anxiety. 7. Abdominal wound with foul-smelling drainage and multiple organisms. PLAN: 1. Continue vancomycin and Zosyn. 2. Vancomycin peak and trough with fourth dose. 3. Continue nutritional support with J-tube. 4. Accu-Cheks with sliding scale coverage. 5. Wound care. 6. She has appointment with Dr. Yuen tomorrow. 7. Recheck CBC and BMP in the morning. 8. Discussed with the patient and family in detail. All questions answered. Job ID: [id number]
[2018-11-07] MEDS ORDERED: Sodium Chloride 0.9% 10 ML ONE ×2 (17:56→23:44)
[2018-11-07] MEDS ORDERED: Sodium Chloride 0.9% 20 ML ONE (19:28)
[2018-11-07] MEDS: Calcium Carbonate 500 MG ChewTAB PER TUBE SCH (20:35)
[2018-11-07] MEDS: Ezetimibe 10 MG TAB PER TUBE SCH (20:35)
[2018-11-07] MEDS: Rosuvastatin 10 MG TAB PER TUBE SCH (20:37)
[2018-11-07] MEDS: Melatonin 3 MG TAB PO PRN (20:38)
[2018-11-07] MEDS: Pancrelipase DR 12000 1 CAP FS PRN (22:00)
[2018-11-08] MEDS: Piperacillin/Tazobactam 3.375 GM in Sodium Chloride 0.9% 100 ML IVPB SCH ×4 (05:38→23:59)
[2018-11-08] MEDS: HumaLOG 300 UNITS/3 ML VIAL SC PRN (05:39)
[2018-11-08] MEDS: Vancomycin HCl 1 GM in Sodium Chloride 0.9% 250 ML 250 ML IVPB SCH ×2 (06:27→20:58)
[2018-11-08] MEDS: Hydrocodone-Acetamin 15 ML UDCUP PER TUBE PRN ×2 (07:49→16:20)
[2018-11-08] MEDS: Pantoprazole 40 MG VIAL IVP SCH ×2 (07:50→21:04)
[2018-11-08] MEDS: Lantus 1000 UNITS/10 ML VIAL SC SCH ×2 (10:41→21:24)
[2018-11-08] MEDS: Gabapentin 300 MG CAP PO SCH ×2 (10:43→21:22)
[2018-11-08] MEDS: Fenofibrate Nanocrystallized 145 MG TAB PER TUBE SCH (10:43)
[2018-11-08] MEDS: Loratadine 10 MG TAB PER TUBE SCH (10:43)
[2018-11-08] MEDS: Lisinopril 10 MG TAB PER TUBE SCH (10:43)
[2018-11-08] MEDS: Aspirin Chewable 81 MG TAB PER TUBE SCH (10:43)
[2018-11-08] MEDS: Multivitamin W/ Minerals 1 TAB PER TUBE SCH (10:43)
[2018-11-08] MEDS: Carvedilol 3.125 MG TAB PER TUBE SCH ×2 (10:43→21:21)
--- NOTE | 2018-11-08 14:10 | PRG ---
DATE OF SERVICE: 11/08/2018 SUBJECTIVE: Ms. Schultz was seen by Dr. Yuen today. He is happy with her progress. He is going to schedule her for a Gastrografin swallow to see if the gastric leak has resolved. He also is recommending wound care with Dakin solution or a weak solution of acetic acid to help with the smell in this drainage. He is going to give instructions to Physical Therapy. He wants us to continue the antibiotics for a total of 10 days. If she passes the Gastrografin study, then it is okay to start her on a clear liquid diet. I made the patient and nursing aware. OBJECTIVE: VITAL SIGNS: She is afebrile, heart rate 93, respirations 18, oxygen saturation 96% on room air, blood pressure 117/56. CARDIOVASCULAR SYSTEM: S1 and S2 plus. RESPIRATORY SYSTEM: Normal vesicular breath sounds. ABDOMEN: Soft. J-tube site is healthy. Wound with dressing. Bowel sounds heard in all quadrants. EXTREMITIES: Without cyanosis or clubbing. CENTRAL NERVOUS SYSTEM: Awake and responsive. Cranial nerves 2 through 12 intact. Generalized weakness. LABORATORY VALUES: Shows blood sugars of 163, 137, 150 and 138. IMPRESSION: 1. Gastric leak requiring gastric stent placement and n.p.o. 2. Diabetes mellitus type 2, well controlled. 3. Hypertension. 4. Dyslipidemia. 5. Coronary artery disease. 6. Depression and anxiety. 7. Open abdominal wound with multiple organisms, on vancomycin and Zosyn. PLAN: 1. Dr. Yuen to schedule Gastrografin swallow to evaluate for gastric leak. 2. Wound care with Dakin solution. 3. Continue antibiotics for 10 days. 4. Routine laboratory values. 5. Accu-Cheks with sliding scale coverage. 6. Continue tube feeding. 7. Discussed with the patient and nursing in detail. All questions answered. Job ID: [id number]
[2018-11-08 20:13] LABS: #Basophils 0.1 thou/uL (0.0-0.2); #Eosinphils 0.5 thou/uL (0.0-0.7); #Lymphocytes 2.3 thou/uL (1.20-3.40); #Monocytes 0.9 thou/uL (0.11-0.59); #Neutrophils 4.8 thou/uL (1.40-6.50); %Basophils 1.7 % (0.0-1.0); %Eosinophils 5.7 % (0.0-10.0); %Lymphocytes 26.6 % (21.0-51.0); %Monocytes 9.9 % (0.0-10.0); %Neutrophils 56.2 % (42.0-75.0); Hemoglobin 8.8 g/dL (12.0-16.0); Mean Corpuscular HGB CONC 30.8 g/dL (32.0-36.0); Mean Corpuscular Hemoglobin 25.7 pg (27.0-31.0); Mean Corpuscular Volume 83.4 fL (78.0-98.0); Mean Platelet Volume 7.9 fL (7.4-10.4); Platelet Count 397 thou/uL (130-400); RBC Distribution Width 15.9 % (11.5-14.5); Red Blood Cell (RBC) Count 3.43 mill/uL (4.20-5.40); White Blood Cell (WBC) Count 8.6 thou/uL (4.8-10.8)
[2018-11-08 20:18] LABS: Vancomycin, Trough 10.5 ug/mL
[2018-11-08 20:21] LABS: Anion Gap 14 mmol/L (10-20); BUN (Urea Nitrogen) 12 mg/dL (9.8-20.1); Calc. Creatinine Clearance 121 mL/min (70-130); Calcium 8.9 mg/dL (7.8-10.44); Carbon Dioxide 27 mmol/L (22-29); Chloride 101 mmol/L (98-107); Estimated GFR-MDRD Greater than 90; Glucose 106 mg/dL (70-105); Potassium 4.1 mmol/L (3.5-5.1); Sodium 138 mmol/L (136-145)
[2018-11-08] MEDS: Sodium Chloride 0.9% (PF) 10 ML VIAL FS PRN (21:04)
[2018-11-08] MEDS: Calcium Carbonate 500 MG ChewTAB PER TUBE SCH (21:21)
[2018-11-08] MEDS: Rosuvastatin 10 MG TAB PER TUBE SCH (21:22)
[2018-11-08] MEDS: Ezetimibe 10 MG TAB PER TUBE SCH (21:23)
[2018-11-08] MEDS: SODIUM HYPOCHLORITE TOP SCH (21:24)
[2018-11-09] MEDS: Hydrocodone-Acetamin 15 ML UDCUP PER TUBE PRN ×3 (05:13→20:42)
[2018-11-09] MEDS: Piperacillin/Tazobactam 3.375 GM in Sodium Chloride 0.9% 100 ML IVPB SCH ×3 (05:27→17:43)
[2018-11-09] MEDS: Pantoprazole 40 MG VIAL IVP SCH ×2 (08:55→20:50)
[2018-11-09] MEDS: Sodium Chloride 0.9% (PF) 10 ML VIAL FS PRN (08:55)
[2018-11-09] MEDS: Multivitamin W/ Minerals 1 TAB PER TUBE SCH (09:07)
[2018-11-09] MEDS: Lisinopril 10 MG TAB PER TUBE SCH (09:08)
[2018-11-09] MEDS: Lantus 1000 UNITS/10 ML VIAL SC SCH ×2 (09:08→20:49)
[2018-11-09] MEDS: Loratadine 10 MG TAB PER TUBE SCH (09:08)
[2018-11-09] MEDS: Carvedilol 3.125 MG TAB PER TUBE SCH ×2 (09:09→20:48)
[2018-11-09] MEDS: Aspirin Chewable 81 MG TAB PER TUBE SCH (09:09)
[2018-11-09] MEDS: Gabapentin 300 MG CAP PO SCH ×2 (09:09→20:49)
[2018-11-09] MEDS: Fenofibrate Nanocrystallized 145 MG TAB PER TUBE SCH (09:09)
[2018-11-09] MEDS: Vancomycin HCl 1 GM in Sodium Chloride 0.9% 250 ML 250 ML IVPB SCH ×2 (09:10→20:51)
[2018-11-09] MEDS: SODIUM HYPOCHLORITE TOP SCH (09:10)
[2018-11-09] MEDS: Sodium Hypochlorite 0.25% Solution 480 ML BOT TOP SCH ×2 (09:45→20:51)
[2018-11-09] MEDS: HumaLOG 300 UNITS/3 ML VIAL SC PRN (12:19)
--- NOTE | 2018-11-09 12:35 | PRG ---
DATE OF SERVICE: 11/09/2018 SUBJECTIVE: Ms. Schultz is doing well. Denies any complaints. Resting comfortably. Tolerating her antibiotics and her wound care. She is scheduled for a Gastrografin swallow on Wednesday to assess for the gastric leak. OBJECTIVE: VITAL SIGNS: She is afebrile. Heart rate 95, respirations 18, oxygen saturation 96% on room air, blood pressure 118/57. CARDIOVASCULAR: S1 and S2 plus. RESPIRATORY: Normal vesicular breath sounds. ABDOMEN: Soft, nontender. Bowel sounds heard in all quadrants. EXTREMITIES: Without cyanosis or clubbing. CENTRAL NERVOUS SYSTEM: Awake and responsive. Cranial nerves 2 through 12 intact. Generalized weakness. LABORATORY VALUES: White count is 8.6, hemoglobin and hematocrit are 8.8 and 28.6. Chemistries, sodium of 138, potassium 4.1, BUN and creatinine are 12 and 1.59. Blood sugars are 96, 143, 161. Her vancomycin trough was 10.5. IMPRESSION: 1. Gastric leak, requiring gastric stent placement and p.o. 2. Abdominal wound with multiple organisms, currently on vancomycin and Zosyn. 3. Diabetes mellitus, type 2, well controlled. 4. Hypertension, well controlled. 5. Dyslipidemia. 6. Coronary artery disease without angina. 7. Depression and anxiety. PLAN: 1. Continue current medications. 2. 1800-calorie heart healthy, ADA, renal diet. 3. Activity as tolerated. 4. Wound care. 5. Nutritional support with J-tube feeding. 6. Gastrografin swallow to evaluate gastric leak. 7. Routine laboratory values. 8. Discussed with the patient and spouse in detail. All questions answered. Job ID: [id number]
[2018-11-09 20:29] LABS: Vancomycin, Trough 15.1 ug/mL
[2018-11-09] MEDS: Calcium Carbonate 500 MG ChewTAB PER TUBE SCH (20:48)
[2018-11-09] MEDS: Ezetimibe 10 MG TAB PER TUBE SCH (20:49)
[2018-11-09] MEDS: Rosuvastatin 10 MG TAB PER TUBE SCH (20:50)
[2018-11-10] MEDS: Piperacillin/Tazobactam 3.375 GM in Sodium Chloride 0.9% 100 ML IVPB SCH ×5 (00:01→23:53)
[2018-11-10] MEDS: Hydrocodone-Acetamin 15 ML UDCUP PER TUBE PRN ×5 (03:45→21:55)
[2018-11-10] MEDS: Aspirin Chewable 81 MG TAB PER TUBE SCH (08:37)
[2018-11-10] MEDS: Carvedilol 3.125 MG TAB PER TUBE SCH ×2 (08:37→21:57)
[2018-11-10] MEDS: Fenofibrate Nanocrystallized 145 MG TAB PER TUBE SCH (08:38)
[2018-11-10] MEDS: Gabapentin 300 MG CAP PO SCH ×2 (08:38→21:57)
[2018-11-10] MEDS: Lisinopril 10 MG TAB PER TUBE SCH (08:38)
[2018-11-10] MEDS: Lantus 1000 UNITS/10 ML VIAL SC SCH ×2 (08:38→21:54)
[2018-11-10] MEDS: Loperamide HCl 2 MG CAP PO PRN (08:39)
[2018-11-10] MEDS: Loratadine 10 MG TAB PER TUBE SCH (08:39)
[2018-11-10] MEDS: Sodium Chloride 0.9% (PF) 10 ML VIAL FS PRN (08:39)
[2018-11-10] MEDS: Pantoprazole 40 MG VIAL IVP SCH ×2 (08:39→21:53)
[2018-11-10] MEDS: Multivitamin W/ Minerals 1 TAB PER TUBE SCH (08:39)
[2018-11-10] MEDS: Vancomycin HCl 1 GM in Sodium Chloride 0.9% 250 ML 250 ML IVPB SCH ×2 (08:48→21:54)
[2018-11-10] MEDS: Sodium Hypochlorite 0.25% Solution 480 ML BOT TOP SCH ×2 (10:40→22:03)
--- NOTE | 2018-11-10 14:16 | PRG ---
DATE OF SERVICE: 11/10/2018 SUBJECTIVE: Ms. Schultz is having some loose stools. Plan is to get a stool for C diff since she is on multiple broad-spectrum IV antibiotics. She is doing well otherwise. She has noticed some trace edema to her legs, but she is active and moving around well. No fever, chills, chest pain, or shortness of breath. OBJECTIVE: VITAL SIGNS: She is afebrile. Heart rate is 84, respirations are 16, oxygen saturation 96% on room air, and blood pressure 135/61. CARDIOVASCULAR SYSTEM: S1 and S2 plus. RESPIRATORY SYSTEM: Normal vesicular breath sounds heard in all lung ziegler. ABDOMEN: Soft. J-tube site is healthy. Abdominal wall with dressing. Bowel sounds heard in all quadrants. EXTREMITIES: Without cyanosis, clubbing, or trace edema. Peripheral pulses are palpable. CENTRAL NERVOUS SYSTEM: Awake and responsive. Cranial nerves 2 through 12 intact. Generalized weakness. IMPRESSION: 1. Gastric leak requiring placement of gastric stent and J-tube to keep her n.p.o. 2. Diabetes mellitus type 2. 3. Hypertension. 4. Dyslipidemia. 5. Coronary artery disease. 6. Depression and anxiety. 7. Open abdominal wound requiring wound care. 8. Diarrhea. PLAN: 1. Stool for C diff. 2. Continue IV antibiotics for a total of 10 days. 3. Await Gastrografin swallow tomorrow. 4. Start her on probiotic. 5. Nutritional support with J-tube feeding. 6. Wound care. 7. Accu-Cheks with sliding scale coverage. Discussed with the patient in detail. All questions answered. Job ID: [id number]
[2018-11-10] MEDS: Calcium Carbonate 500 MG ChewTAB PER TUBE SCH (21:56)
[2018-11-10] MEDS: Rosuvastatin 10 MG TAB PER TUBE SCH (21:56)
[2018-11-10] MEDS: Ezetimibe 10 MG TAB PER TUBE SCH (21:56)
[2018-11-11] MEDS: Piperacillin/Tazobactam 3.375 GM in Sodium Chloride 0.9% 100 ML IVPB SCH ×4 (05:13→23:56)
[2018-11-11] MEDS: Hydrocodone-Acetamin 15 ML UDCUP PER TUBE PRN ×3 (07:16→21:23)
--- NOTE | 2018-11-11 10:15 | PRG ---
DATE OF SERVICE: 11/11/2018 SUBJECTIVE: Her stool for Clostridium difficile was not sent yet because apparently she only has loose bowel movement in the morning, and then after that, even if she has a bowel movement, it is pretty formed. She is having her Gastrografin swallow today this morning to evaluate for gastric leak. No documented fever or chills. Tolerating antibiotics. No other concerns or questions. OBJECTIVE: VITAL SIGNS: She is afebrile. Yesterday evening, heart rate 80, respirations 18, oxygen saturation 97% on room air, and blood pressure 120/57. CARDIOVASCULAR SYSTEM: S1 and S2 plus. RESPIRATORY SYSTEM: Normal vesicular breath sounds. ABDOMEN: Soft and nontender. Bowel sounds heard in all quadrants. J-tube site is healthy. Wound with dressing. EXTREMITIES: Without cyanosis or clubbing. Trace edema. CENTRAL NERVOUS SYSTEM: Awake and responsive. Cranial nerves 2 through 12 intact. Grossly nonfocal. IMPRESSION: 1. Gastric leak, requiring gastric stent placement and n.p.o. 2. Diabetes mellitus, type 2. 3. Hypertension. 4. Dyslipidemia. 5. Coronary artery disease. 6. Depression and anxiety. PLAN: 1. Continue tube feeding. 2. If this Gastrografin swallow is negative for any leak, we will start her on a clear liquid diet, and Dr. Yuen will arrange for her to see the specialists in [place] to have the gastric stent removed. 3. Continue activity. 4. IV antibiotics for a total of 10 days. 5. Routine laboratory values. 6. Continue to monitor Accu-Cheks. She has been doing well, and her last few have been 142, 186, 166, 119, and 134. Job ID: [id number]
[2018-11-11] MEDS: Vancomycin HCl 1 GM in Sodium Chloride 0.9% 250 ML 250 ML IVPB SCH ×2 (10:46→21:22)
[2018-11-11] MEDS: Multivitamin W/ Minerals 1 TAB PER TUBE SCH (10:48)
[2018-11-11] MEDS: Sodium Chloride 0.9% (PF) 10 ML VIAL FS PRN (10:48)
[2018-11-11] MEDS: Pantoprazole 40 MG VIAL IVP SCH ×2 (10:48→21:23)
[2018-11-11] MEDS: Aspirin Chewable 81 MG TAB PER TUBE SCH (10:48)
[2018-11-11] MEDS: Saccharomyces boulardii 250 MG CAP PER TUBE SCH (10:48)
[2018-11-11] MEDS: Fenofibrate Nanocrystallized 145 MG TAB PER TUBE SCH (10:48)
[2018-11-11] MEDS: Gabapentin 300 MG CAP PO SCH ×2 (10:48→21:25)
[2018-11-11] MEDS: Loratadine 10 MG TAB PER TUBE SCH (10:48)
[2018-11-11] MEDS: Lisinopril 10 MG TAB PER TUBE SCH (10:48)
[2018-11-11] MEDS: Lantus 1000 UNITS/10 ML VIAL SC SCH ×2 (10:50→21:22)
[2018-11-11] MEDS: Sodium Hypochlorite 0.25% Solution 480 ML BOT TOP SCH ×2 (10:51→21:26)
[2018-11-11] MEDS: Carvedilol 3.125 MG TAB PER TUBE SCH ×2 (10:51→21:25)
[2018-11-11] MEDS: Ondansetron PF 4 MG/2 ML Vial IVP PRN (11:03)
[2018-11-11] MEDS: Rosuvastatin 10 MG TAB PER TUBE SCH (21:24)
[2018-11-11] MEDS: Calcium Carbonate 500 MG ChewTAB PER TUBE SCH (21:25)
[2018-11-11] MEDS: Ezetimibe 10 MG TAB PER TUBE SCH (21:25)
[2018-11-12] MEDS: Hydrocodone-Acetamin 15 ML UDCUP PER TUBE PRN ×3 (04:28→21:56)
[2018-11-12] MEDS: Ondansetron PF 4 MG/2 ML Vial IVP PRN (04:29)
[2018-11-12] MEDS: Piperacillin/Tazobactam 3.375 GM in Sodium Chloride 0.9% 100 ML IVPB SCH ×4 (04:29→23:33)
[2018-11-12 08:13] LABS: Vancomycin, Trough 20.8 ug/mL
[2018-11-12] MEDS: Lantus 1000 UNITS/10 ML VIAL SC SCH ×2 (08:41→21:42)
[2018-11-12] MEDS: Vancomycin HCl 1 GM in Sodium Chloride 0.9% 250 ML 250 ML IVPB SCH ×2 (08:42→21:38)
[2018-11-12] MEDS: Fenofibrate Nanocrystallized 145 MG TAB PER TUBE SCH (08:43)
[2018-11-12] MEDS: Aspirin Chewable 81 MG TAB PER TUBE SCH (08:43)
[2018-11-12] MEDS: Gabapentin 300 MG CAP PO SCH ×2 (08:43→21:45)
[2018-11-12] MEDS: Lisinopril 10 MG TAB PER TUBE SCH (08:43)
[2018-11-12] MEDS: Saccharomyces boulardii 250 MG CAP PER TUBE SCH (08:43)
[2018-11-12] MEDS: Multivitamin W/ Minerals 1 TAB PER TUBE SCH (08:43)
[2018-11-12] MEDS: Loratadine 10 MG TAB PER TUBE SCH (08:43)
[2018-11-12] MEDS: Carvedilol 3.125 MG TAB PER TUBE SCH ×2 (08:44→21:45)
[2018-11-12] MEDS: Pantoprazole 40 MG VIAL IVP SCH ×2 (08:44→21:39)
[2018-11-12] MEDS: Sodium Chloride 0.9% (PF) 10 ML VIAL FS PRN (08:44)
[2018-11-12] MEDS: Sodium Hypochlorite 0.25% Solution 480 ML BOT TOP SCH ×2 (08:45→21:46)
[2018-11-12] MEDS: HumaLOG 300 UNITS/3 ML VIAL SC PRN (12:23)
--- NOTE | 2018-11-12 16:01 | PRG ---
DATE OF SERVICE: 11/12/2018 SUBJECTIVE: Ms. Schultz is doing well. Denies any complaints, ambulating in the hallways, tolerating her feedings. Unfortunately, her Gastrografin swallow still shows a gastric leak at the inferior to the gastric stent. We will discuss with Dr. Yuen on Wednesday, but he stated that if it showed persistently, then she needs to stay n.p.o. for another couple of weeks and then redo the swallow test again. OBJECTIVE: VITAL SIGNS: She is afebrile, heart rate 84, respirations 26, oxygen saturation 95% on room air, blood pressure 119/58. CARDIOVASCULAR SYSTEM: S1 and S2 plus. RESPIRATORY SYSTEM: Normal vesicular breath sounds. ABDOMEN: Soft, minimal tenderness. Bowel sounds heard in all quadrants. J-tube site is healthy. Abdominal wound with dressing. LABORATORY DATA: Blood sugars are 130, 84, 92, 127, and 165. IMPRESSION: 1. Persistent gastric leak, status post bariatric surgery. 2. Diabetes mellitus type 2. 3. Hypertension. 4. Dyslipidemia. 5. Coronary artery disease. 6. Depression and anxiety. 7. Abdominal wound with multiple organisms cultured. PLAN: 1. Continue IV antibiotics for a total of 10 days. 2. Nutritional support through J-tube. 3. Continue to keep the patient n.p.o. 4. Accu-Chek with sliding scale coverage. 5. Wound care. 6. DVT and stress ulcer prophylaxis. She is ambulating well and does not need really any DVT prophylaxis. Continue Protonix. Discussed with the patient. No family at bedside. Job ID: [id number]
[2018-11-12] MEDS: Rosuvastatin 10 MG TAB PER TUBE SCH (21:44)
[2018-11-12] MEDS: Ezetimibe 10 MG TAB PER TUBE SCH (21:45)
[2018-11-12] MEDS: Calcium Carbonate 500 MG ChewTAB PER TUBE SCH (21:45)
[2018-11-13] MEDS: Hydrocodone-Acetamin 15 ML UDCUP PER TUBE PRN ×4 (03:05→21:37)
[2018-11-13] MEDS: Piperacillin/Tazobactam 3.375 GM in Sodium Chloride 0.9% 100 ML IVPB SCH ×4 (05:15→23:14)
[2018-11-13] MEDS: Lisinopril 10 MG TAB PER TUBE SCH (08:57)
[2018-11-13] MEDS: Fenofibrate Nanocrystallized 145 MG TAB PER TUBE SCH (08:57)
[2018-11-13] MEDS: Carvedilol 3.125 MG TAB PER TUBE SCH ×2 (08:57→21:39)
[2018-11-13] MEDS: Aspirin Chewable 81 MG TAB PER TUBE SCH (08:57)
[2018-11-13] MEDS: Saccharomyces boulardii 250 MG CAP PER TUBE SCH (08:57)
[2018-11-13] MEDS: Loratadine 10 MG TAB PER TUBE SCH (08:57)
[2018-11-13] MEDS: Lantus 1000 UNITS/10 ML VIAL SC SCH ×2 (08:57→21:33)
[2018-11-13] MEDS: Multivitamin W/ Minerals 1 TAB PER TUBE SCH (08:57)
[2018-11-13] MEDS: Gabapentin 300 MG CAP PO SCH ×2 (08:57→21:39)
[2018-11-13] MEDS: Pantoprazole 40 MG VIAL IVP SCH ×2 (08:58→21:32)
[2018-11-13] MEDS: Sodium Chloride 0.9% (PF) 10 ML VIAL FS PRN (08:58)
[2018-11-13] MEDS: Sodium Hypochlorite 0.25% Solution 480 ML BOT TOP SCH ×2 (08:59→21:39)
[2018-11-13] MEDS: Vancomycin HCl 1 GM in Sodium Chloride 0.9% 250 ML 250 ML IVPB SCH ×2 (08:59→21:34)
[2018-11-13] MEDS: Ondansetron PF 4 MG/2 ML Vial IVP PRN ×2 (10:14→21:48)
[2018-11-13] MEDS: Pancrelipase DR 12000 1 CAP FS PRN (11:15)
[2018-11-13] MEDS: HumaLOG 300 UNITS/3 ML VIAL SC PRN (11:16)
--- NOTE | 2018-11-13 16:11 | PRG ---
DATE OF SERVICE: 11/13/2018 SUBJECTIVE: Ms. Schultz is up in the front with her family. She denies any questions or concerns. She is tolerating her tube feeds and her IV antibiotics. Spouse had some questions regarding the size of the leak and I advised her that it is not described in the Gastrografin swallow and I am not sure if they will be able to see that, but if he has any questions, to talk to Dr. Yuen directly. OBJECTIVE: VITAL SIGNS: She is afebrile. Heart rate 101, respirations 20, oxygen saturation 98% on room air, blood pressure 148/79. CARDIOVASCULAR SYSTEM: S1 and S2 plus. RESPIRATORY SYSTEMS: Normal vesicular breath sounds. ABDOMEN: Soft, nontender. Abdominal wound with dressing. J-tube site is healthy. Bowel sounds heard in all quadrants. CENTRAL NERVOUS SYSTEM: Awake and responsive. Grossly nonfocal. LABORATORY DATA: Blood sugars are 117, 100, 170, and 160. IMPRESSION: 1. Gastric leak, status post bariatric surgery, requiring placement of gastric stent and J-tube placement and keeping the patient n.p.o. 2. Abdominal wound with possible infection, doing better on IV antibiotics. 3. Diabetes mellitus, type 2. 4. Hypertension. 5. Dyslipidemia. 6. Coronary artery disease. 7. Depression and anxiety. PLAN: 1. Continue current medications including antibiotics for a total of 10 days. 2. Wound care. 3. Nutritional support. 4. Accu-Cheks with sliding scale coverage. 5. Decubitus precautions. 6. No need for DVT prophylaxis as the patient is very active. 7. Discuss with Dr. Yuen tomorrow as to further plan. He had said that if she continued to have a leak, then he wants her to continue on the J-tube feedings for another two weeks before redoing another Gastrografin swallow. Discussed with the patient and family in detail. All questions answered. Job ID: [id number]
[2018-11-13] MEDS: Ezetimibe 10 MG TAB PER TUBE SCH (21:38)
[2018-11-13] MEDS: Rosuvastatin 10 MG TAB PER TUBE SCH (21:38)
[2018-11-13] MEDS: Calcium Carbonate 500 MG ChewTAB PER TUBE SCH (21:39)
[2018-11-14] MEDS: Piperacillin/Tazobactam 3.375 GM in Sodium Chloride 0.9% 100 ML IVPB SCH ×3 (05:35→18:22)
[2018-11-14 05:40] LABS: #Basophils 0.1 thou/uL (0.0-0.2); #Eosinphils 0.1 thou/uL (0.0-0.7); #Lymphocytes 1.4 thou/uL (1.20-3.40); #Monocytes 0.7 thou/uL (0.11-0.59); #Neutrophils 5.6 thou/uL (1.40-6.50); %Basophils 1.4 % (0.0-1.0); %Eosinophils 1.8 % (0.0-10.0); %Lymphocytes 17.5 % (21.0-51.0); %Monocytes 8.9 % (0.0-10.0); %Neutrophils 70.4 % (42.0-75.0); Hemoglobin 7.7 g/dL (12.0-16.0); Mean Corpuscular HGB CONC 30.1 g/dL (32.0-36.0); Mean Corpuscular Hemoglobin 25.7 pg (27.0-31.0); Mean Corpuscular Volume 85.4 fL (78.0-98.0); Mean Platelet Volume 7.8 fL (7.4-10.4); Platelet Count 333 thou/uL (130-400); RBC Distribution Width 16.8 % (11.5-14.5)
[2018-11-14 05:51] LABS: Anion Gap 13 mmol/L (10-20); BUN (Urea Nitrogen) 18 mg/dL (9.8-20.1); Calc. Creatinine Clearance 80 mL/min (70-130); Calcium 8.4 mg/dL (7.8-10.44); Carbon Dioxide 28 mmol/L (22-29); Chloride 107 mmol/L (98-107); Estimated GFR-MDRD 66; Glucose 139 mg/dL (70-105); Potassium 4.5 mmol/L (3.5-5.1); Sodium 143 mmol/L (136-145)
[2018-11-14] MEDS: Aspirin Chewable 81 MG TAB PER TUBE SCH (08:44)
[2018-11-14] MEDS: Carvedilol 3.125 MG TAB PER TUBE SCH ×2 (08:44→21:48)
[2018-11-14] MEDS: Fenofibrate Nanocrystallized 145 MG TAB PER TUBE SCH (08:44)
[2018-11-14] MEDS: Gabapentin 300 MG CAP PO SCH ×2 (08:44→21:47)
[2018-11-14] MEDS: Hydrocodone-Acetamin 15 ML UDCUP PER TUBE PRN ×3 (08:45→21:46)
[2018-11-14] MEDS: Lisinopril 10 MG TAB PER TUBE SCH (08:45)
[2018-11-14] MEDS: Loratadine 10 MG TAB PER TUBE SCH (08:45)
[2018-11-14] MEDS: Lantus 1000 UNITS/10 ML VIAL SC SCH ×2 (08:45→21:45)
[2018-11-14] MEDS: Sodium Hypochlorite 0.25% Solution 480 ML BOT TOP SCH ×2 (08:52→21:49)
[2018-11-14] MEDS: Pantoprazole 40 MG VIAL IVP SCH ×2 (08:53→21:45)
[2018-11-14] MEDS: Sodium Chloride 0.9% (PF) 10 ML VIAL FS PRN (08:53)
[2018-11-14] MEDS: Saccharomyces boulardii 250 MG CAP PER TUBE SCH (08:54)
[2018-11-14] MEDS: Multivitamin W/ Minerals 1 TAB PER TUBE SCH (08:58)
[2018-11-14] MEDS: Ondansetron PF 4 MG/2 ML Vial IVP PRN ×2 (09:06→17:31)
[2018-11-14] MEDS: HumaLOG 300 UNITS/3 ML VIAL SC PRN (13:07)
--- NOTE | 2018-11-14 18:29 | PRG ---
DATE OF SERVICE: 11/14/2018 SUBJECTIVE: Ms. Schultz is doing the same. Denies any complaints. She has an appointment scheduled to see Dr. Yuen tomorrow morning. She is tolerating her antibiotics. She is having some nausea and wants some medication for it. No fever or chills. OBJECTIVE: VITAL SIGNS: She is afebrile, heart rate 98, respirations 16, oxygen saturation 96% on room air, and blood pressure 134/66. CARDIOVASCULAR SYSTEM: S1 and S2 plus. RESPIRATORY SYSTEM: Normal vesicular breath sounds. ABDOMEN: Soft. Minimal tenderness. Bowel sounds heard in all quadrants. Abdominal wound with dressing. J-tube site is healthy. EXTREMITIES: Without cyanosis or clubbing. Trace edema. Peripheral pulses are palpable. CENTRAL NERVOUS SYSTEM: Awake and responsive. Cranial nerves 2 through 12 intact. Generalized weakness. LABORATORY VALUES: Show a white count of 8, H and H are 7.7 and 25.7. Chemistry shows sodium of 143, potassium 4.5, BUN and creatinine are 18 and 0.89. Blood sugars are 161, 148, 139, and 187. IMPRESSION: 1. Gastric leak, requiring placement of gastric stent and n.p.o. 2. Diabetes mellitus, type 2. 3. Hypertension. 4. Dyslipidemia. 5. Coronary artery disease. 6. Open abdominal wound. 7. Depression and anxiety. PLAN: 1. Continue current medications including antibiotics. 2. Tube feeds. 3. Wound care. 4. DVT prophylaxis. The patient is actually up and walking around and is not at risk for DVT. 5. Decubitus precautions. 6. Stress ulcer prophylaxis. 7. Last day for antibiotics will be Wednesday. Job ID: [id number]
[2018-11-14] MEDS: Rosuvastatin 10 MG TAB PER TUBE SCH (21:47)
[2018-11-14] MEDS: Ezetimibe 10 MG TAB PER TUBE SCH (21:48)
[2018-11-14] MEDS: Calcium Carbonate 500 MG ChewTAB PER TUBE SCH (21:48)
[2018-11-15] MEDS: Piperacillin/Tazobactam 3.375 GM in Sodium Chloride 0.9% 100 ML IVPB SCH ×5 (00:23→23:35)
[2018-11-15] MEDS: Pantoprazole 40 MG VIAL IVP SCH ×2 (07:46→21:54)
[2018-11-15] MEDS: Sodium Chloride 0.9% (PF) 10 ML VIAL FS PRN (07:46)
[2018-11-15] MEDS: Hydrocodone-Acetamin 15 ML UDCUP PER TUBE PRN ×3 (07:46→21:56)
[2018-11-15] MEDS: Ondansetron PF 4 MG/2 ML Vial IVP PRN ×3 (07:48→21:54)
[2018-11-15] MEDS: Aspirin Chewable 81 MG TAB PER TUBE SCH (11:40)
[2018-11-15] MEDS: Carvedilol 3.125 MG TAB PER TUBE SCH ×2 (11:41→21:53)
[2018-11-15] MEDS: Fenofibrate Nanocrystallized 145 MG TAB PER TUBE SCH (11:41)
[2018-11-15] MEDS: Gabapentin 300 MG CAP PO SCH ×2 (11:42→21:52)
[2018-11-15] MEDS: Lisinopril 10 MG TAB PER TUBE SCH (11:42)
[2018-11-15] MEDS: Loratadine 10 MG TAB PER TUBE SCH (11:43)
[2018-11-15] MEDS: Multivitamin W/ Minerals 1 TAB PER TUBE SCH (11:44)
[2018-11-15] MEDS: Saccharomyces boulardii 250 MG CAP PER TUBE SCH (11:45)
[2018-11-15] MEDS: Sodium Hypochlorite 0.25% Solution 480 ML BOT TOP SCH ×2 (11:46→21:55)
[2018-11-15] MEDS: Lantus 1000 UNITS/10 ML VIAL SC SCH ×2 (11:48→21:53)
--- NOTE | 2018-11-15 13:51 | PRG ---
DATE OF SERVICE: 11/15/2018 SUBJECTIVE: Ms. Schultz was seen by Dr. Yuen and he feels like since the leak is below the stent that the stent may be repositioned. He discussed with the surgeon, who placed the stent in [place] and she apparently has an appointment on next to do so. Plan is for her to go there onpass and then come back here and if it is working, then she is supposed to be able to start on a clear liquid diet, and when she does that, hopefully she will be able to get off her J-tube feedings as well as reduce her wound care to once a day, which will then make it easy for her to go home with Home Health. She is also noticing worsening right leg swelling, but no pain. She does have some pitting edema. No chest pain or shortness of breath. OBJECTIVE: VITAL SIGNS: She is afebrile. Heart rate 98, respirations 16, oxygen saturation 96% on room air, blood pressure 135/65. CARDIOVASCULAR: S1, S2 plus. RESPIRATORY: Normal vesicular breath sounds. ABDOMEN: Soft, nontender. Bowel sounds heard in all quadrants. Abdominal wound with dressing, and J-tube site is healthy. EXTREMITIES: Without cyanosis or clubbing. Right, 2+ edema. Left, trace edema. Right leg shows no calf tenderness. CENTRAL NERVOUS SYSTEM: Awake and responsive. Cranial nerves 2 through 12 intact. Generalized weakness. IMPRESSION: 1. Right leg edema, doubt deep vein thrombosis, but we will get venous Doppler just to be safe. 2. Abdominal wound, requiring wound care. 3. Gastric leak, requiring stent placement and may need repositioning of stent. 4. Diabetes mellitus type 2. 5. Hypertension. 6. Dyslipidemia. 7. Coronary artery disease. 8. Depression and anxiety. PLAN: 1. Continue current medications. 2. Nutritional support. 3. Tube feeding. 4. Wound care. 5. Finish antibiotics on the . 6. Check venous Doppler of the right lower extremity. 7. Continue to ambulate as tolerated. 8. Discussed with the patient and family in detail. All questions answered. Job ID: [id number]
[2018-11-15] MEDS: Calcium Carbonate 500 MG ChewTAB PER TUBE SCH (21:52)
[2018-11-15] MEDS: Ezetimibe 10 MG TAB PER TUBE SCH (21:53)
[2018-11-15] MEDS: Rosuvastatin 10 MG TAB PER TUBE SCH (21:53)
[2018-11-16] MEDS: Piperacillin/Tazobactam 3.375 GM in Sodium Chloride 0.9% 100 ML IVPB SCH ×4 (05:36→23:44)
[2018-11-16] MEDS: Hydrocodone-Acetamin 15 ML UDCUP PER TUBE PRN ×2 (08:07→18:53)
[2018-11-16] MEDS: Sodium Hypochlorite 0.25% Solution 480 ML BOT TOP SCH ×2 (08:37→20:58)
[2018-11-16] MEDS: Saccharomyces boulardii 250 MG CAP PER TUBE SCH (09:23)
[2018-11-16] MEDS: Loratadine 10 MG TAB PER TUBE SCH (09:23)
[2018-11-16] MEDS: Multivitamin W/ Minerals 1 TAB PER TUBE SCH (09:23)
[2018-11-16] MEDS: Aspirin Chewable 81 MG TAB PER TUBE SCH (09:23)
[2018-11-16] MEDS: Lisinopril 10 MG TAB PER TUBE SCH (09:23)
[2018-11-16] MEDS: Gabapentin 300 MG CAP PO SCH ×2 (09:23→21:38)
[2018-11-16] MEDS: Fenofibrate Nanocrystallized 145 MG TAB PER TUBE SCH (09:23)
[2018-11-16] MEDS: Carvedilol 3.125 MG TAB PER TUBE SCH ×2 (09:23→21:38)
[2018-11-16] MEDS: Pantoprazole 40 MG VIAL IVP SCH ×2 (09:24→20:57)
[2018-11-16] MEDS: Sodium Chloride 0.9% (PF) 10 ML VIAL FS PRN (09:24)
[2018-11-16] MEDS: Lantus 1000 UNITS/10 ML VIAL SC SCH ×2 (09:24→20:56)
--- NOTE | 2018-11-16 14:02 | PRG ---
DATE OF SERVICE: 11/16/2018 SUBJECTIVE: Ms. Schultz is doing well apparently when they held her feedings for 30 minutes before giving her medicine. She did not have any nausea. Advise nursing to continue doing the same. Also today should be her last date for her antibiotics, so she should be able to go out on pass for a couple of hours tomorrow. Her wound is looking better according to wound care notes. OBJECTIVE: VITAL SIGNS: She is afebrile. Heart rate 96, respirations 20, oxygen saturation 99% on room air, blood pressure 135/61. CARDIOVASCULAR: S1 and S2 plus. RESPIRATORY: Normal vesicular breath sounds. ABDOMEN: Soft. Minimal tenderness. Bowel sounds in all quadrants. J-tube site is healthy. Wound with dressing. EXTREMITIES: Without cyanosis or clubbing. Peripheral pulses are palpable. IMPRESSION: 1. Open abdominal wound, requiring wound care. 2. Gastric leak, status post bariatric surgery, requiring the patient to be n.p.o. 3. Diabetes mellitus type 2. 4. Hypertension. 5. Dyslipidemia. 6. Coronary artery disease. 7. Depression and anxiety. PLAN: 1. Continue current medications. 2. Antibiotics up to today. 3. Okay to go out on pass tomorrow. 4. Wound care. 5. Hold J-tube feedings with 30 minutes before giving her medicine. 6. Activity as tolerated. 7. Outpatient followup in [place] next for possible repositioning of stent or placement of another stent. Discussed with the patient and nursing in detail. All questions answered. Job ID: [id number]
[2018-11-16] MEDS: Ondansetron PF 4 MG/2 ML Vial IVP PRN ×2 (18:09→23:46)
[2018-11-16] MEDS: Calcium Carbonate 500 MG ChewTAB PER TUBE SCH (21:37)
[2018-11-16] MEDS: Rosuvastatin 10 MG TAB PER TUBE SCH (21:38)
[2018-11-16] MEDS: Ezetimibe 10 MG TAB PER TUBE SCH (21:38)
[2018-11-17] MEDS: Hydrocodone-Acetamin 15 ML UDCUP PER TUBE PRN ×3 (07:06→19:42)
[2018-11-17] MEDS: Ondansetron PF 4 MG/2 ML Vial IVP PRN ×2 (07:07→19:41)
[2018-11-17] MEDS: Saccharomyces boulardii 250 MG CAP PER TUBE SCH (09:05)
[2018-11-17] MEDS: Sodium Chloride 0.9% (PF) 10 ML VIAL FS PRN ×2 (09:05→19:42)
[2018-11-17] MEDS: Lantus 1000 UNITS/10 ML VIAL SC SCH ×2 (09:05→20:23)
[2018-11-17] MEDS: Pantoprazole 40 MG VIAL IVP SCH ×2 (09:05→19:42)
[2018-11-17] MEDS: Fenofibrate Nanocrystallized 145 MG TAB PER TUBE SCH (09:06)
[2018-11-17] MEDS: Aspirin Chewable 81 MG TAB PER TUBE SCH (09:06)
[2018-11-17] MEDS: Gabapentin 300 MG CAP PO SCH ×2 (09:06→20:03)
[2018-11-17] MEDS: Carvedilol 3.125 MG TAB PER TUBE SCH ×2 (09:06→20:03)
[2018-11-17] MEDS: Lisinopril 10 MG TAB PER TUBE SCH (09:06)
[2018-11-17] MEDS: Loratadine 10 MG TAB PER TUBE SCH (09:06)
[2018-11-17] MEDS: Multivitamin W/ Minerals 1 TAB PER TUBE SCH (09:06)
[2018-11-17] MEDS: Sodium Hypochlorite 0.25% Solution 480 ML BOT TOP SCH ×2 (09:32→20:04)
--- NOTE | 2018-11-17 11:23 | ULT ---
ULTRASOUND DOPPLER DUPLEX VENOUS RIGHT LOWER EXTREMITY: DATE: 11/17/2018 HISTORY: 53-year-old female with right lower extremity edema. TECHNIQUE: Grayscale, color-flow, and spectral analysis, of major veins of right lower extremity. FINDINGS: There is demonstration of blood flow with normal compressibility, of the right common femoral, profun da femoral, greater saphenous, femoral, popliteal, and posterior tibial, veins. IMPRESSION: Negative. No deep venous thrombosis of right lower extremity.
--- NOTE | 2018-11-17 13:40 | PRG ---
DATE OF SERVICE: 11/17/2018 SUBJECTIVE: Ms. Schultz is doing well. She is off her antibiotics. Still has some heartburn at night when she lays flat. Denies any fever or chills. Wound is healing nicely. She wants to go out on pass for a couple of hours to home. She is aware of the risks. Her is with her. OBJECTIVE: VITAL SIGNS: She is afebrile. Heart rate 96, respirations 18, oxygen saturation 98%, and blood pressure 153/70. CARDIOVASCULAR: S1 and S2 plus. RESPIRATORY: Normal vesicular breath sounds. ABDOMEN: Soft and nontender. Bowel sounds heard in all quadrants. EXTREMITIES: Without cyanosis or clubbing. Trace pedal edema. Peripheral pulses are palpable. CENTRAL NERVOUS SYSTEM: Awake and responsive. Cranial nerves 2 through 12 intact. Generalized weakness. LABORATORY DATA: Blood sugars are 100, 95, 92, 93, and 84. IMPRESSION: 1. Healing abdominal wound. 2. Gastric leak, requiring gastric stent placement and n.p.o. 3. Diabetes mellitus type 2. 4. Hypertension. 5. Dyslipidemia. 6. Coronary artery disease. 7. Depression and anxiety. 8. Pedal edema, likely due to combination of venous insufficiency and her antibiotics. PLAN: 1. Continue to monitor wound, now that she is off the antibiotics. 2. Await her appointment with her barge loader in [place] for repositioning of stent and placement of another stent. 3. Continue n.p.o. and tube feeds. 4. Accu-Cheks with sliding scale coverage. 5. DVT prophylaxis. The patient is active and does not need any. 6. Decubitus precaution. 7. Stress ulcer prophylaxis. 8. Routine laboratory values. Job ID: [id number]
[2018-11-17] MEDS: Rosuvastatin 10 MG TAB PER TUBE SCH (20:02)
[2018-11-17] MEDS: Calcium Carbonate 500 MG ChewTAB PER TUBE SCH (20:02)
[2018-11-17] MEDS: Ezetimibe 10 MG TAB PER TUBE SCH (20:03)
[2018-11-18] MEDS: Hydrocodone-Acetamin 15 ML UDCUP PER TUBE PRN ×3 (09:38→22:05)
[2018-11-18] MEDS: Pantoprazole 40 MG VIAL IVP SCH ×2 (09:39→21:04)
[2018-11-18] MEDS: Lantus 1000 UNITS/10 ML VIAL SC SCH ×2 (09:39→22:19)
[2018-11-18] MEDS: Loratadine 10 MG TAB PER TUBE SCH (09:40)
[2018-11-18] MEDS: Sodium Chloride 0.9% (PF) 10 ML VIAL FS PRN ×2 (09:40→21:04)
[2018-11-18] MEDS: Fenofibrate Nanocrystallized 145 MG TAB PER TUBE SCH (09:40)
[2018-11-18] MEDS: Multivitamin W/ Minerals 1 TAB PER TUBE SCH (09:40)
[2018-11-18] MEDS: Lisinopril 10 MG TAB PER TUBE SCH (09:40)
[2018-11-18] MEDS: Carvedilol 3.125 MG TAB PER TUBE SCH ×2 (09:40→22:04)
[2018-11-18] MEDS: Saccharomyces boulardii 250 MG CAP PER TUBE SCH (09:40)
[2018-11-18] MEDS: Gabapentin 300 MG CAP PO SCH ×2 (09:41→22:04)
[2018-11-18] MEDS: Aspirin Chewable 81 MG TAB PER TUBE SCH (09:41)
[2018-11-18] MEDS: Sodium Hypochlorite 0.25% Solution 480 ML BOT TOP SCH ×2 (09:41→22:05)
[2018-11-18] MEDS: HumaLOG 300 UNITS/3 ML VIAL SC PRN (12:45)
[2018-11-18] MEDS: Ondansetron PF 4 MG/2 ML Vial IVP PRN (21:03)
[2018-11-18] MEDS: Calcium Carbonate 500 MG ChewTAB PER TUBE SCH (22:03)
[2018-11-18] MEDS: Rosuvastatin 10 MG TAB PER TUBE SCH (22:04)
[2018-11-18] MEDS: Ezetimibe 10 MG TAB PER TUBE SCH (22:04)
[2018-11-19] MEDS: Gabapentin 300 MG CAP PO SCH ×2 (09:08→21:15)
[2018-11-19] MEDS: Carvedilol 3.125 MG TAB PER TUBE SCH ×2 (09:08→21:15)
[2018-11-19] MEDS: Fenofibrate Nanocrystallized 145 MG TAB PER TUBE SCH (09:08)
[2018-11-19] MEDS: Aspirin Chewable 81 MG TAB PER TUBE SCH (09:08)
[2018-11-19] MEDS: Lisinopril 10 MG TAB PER TUBE SCH (09:09)
[2018-11-19] MEDS: Multivitamin W/ Minerals 1 TAB PER TUBE SCH (09:09)
[2018-11-19] MEDS: Loratadine 10 MG TAB PER TUBE SCH (09:09)
[2018-11-19] MEDS: Lantus 1000 UNITS/10 ML VIAL SC SCH ×2 (09:09→21:29)
[2018-11-19] MEDS: Pantoprazole 40 MG VIAL IVP SCH ×2 (09:09→20:03)
[2018-11-19] MEDS: Saccharomyces boulardii 250 MG CAP PER TUBE SCH (09:10)
[2018-11-19] MEDS: Ondansetron PF 4 MG/2 ML Vial IVP PRN ×2 (09:10→20:04)
[2018-11-19] MEDS: Hydrocodone-Acetamin 15 ML UDCUP PER TUBE PRN ×3 (09:10→22:04)
[2018-11-19] MEDS: Sodium Chloride 0.9% (PF) 10 ML VIAL FS PRN ×2 (09:10→20:03)
[2018-11-19] MEDS: Sodium Hypochlorite 0.25% Solution 480 ML BOT TOP SCH ×2 (09:31→21:16)
--- NOTE | 2018-11-19 10:58 | PRG ---
DATE OF SERVICE: 11/19/2018 SUBJECTIVE: The patient is lying in bed, no distress, very cheerful, stating she is having her stent redone in [place]. She is denying any weakness, fatigue, has been out on pass with no difficulty. She has not noticed any bruising or bleeding from her wound. She does state that she has put out minimal amount of urine, but does not know how much. OBJECTIVE: ABDOMEN: Soft with some minimal tenderness. Wound is healing according to the nurses and agriculture extension specialist. LUNGS: Clear. CARDIAC: Shows regular rhythm. VITAL SIGNS: Show a temperature 96, pulse 96, respirations 18, O2 sats 99% on room air, blood pressure 137/82. Accu-Cheks ranged from 96 to 157. LABORATORY DATA: Most recent hemoglobin is down to 7.7 on November 14. ASSESSMENT: 1. Resolving abdominal wound, status post gastric leak requiring gastric stent placement scheduled for next week. 2. Worsening anemia and we will repeat tomorrow, may need transfusion prior to surgical procedure. 3. Diabetes type 2, controlled to goal. 4. Hypertension, controlled to goal. 5. Depression and anxiety, improving. PLAN: 1. Continue to monitor wound, off antibiotics with wound care. 2. Check CBC and basic metabolic profile in the a.m. 3. Measure intake and output. 4. Continue n.p.o. and tube feeds. 5. Continue Accu-Cheks and sliding scale. 6. Continue ambulation. Job ID: [id number]
--- NOTE | 2018-11-19 10:59 | PRG ---
DATE OF SERVICE: 11/18/2018 SUBJECTIVE: Ms. Schultz is doing well. Denies any complaints. Her wound has improved enough that physical therapy has turned it over to Nursing for daily wound care. She has done with her antibiotics. She had a good day trip yesterday. She is still trying to get some finances arranged to get her stent placement again next week. OBJECTIVE: VITAL SIGNS: She is afebrile, heart rate is 96, respirations 18, oxygen saturation 99% on room air, blood pressure 137/82. CARDIOVASCULAR SYSTEM: S1 and S2 plus. RESPIRATORY SYSTEM: Normal vesicular breath sounds. ABDOMEN: Soft. Minimal tenderness. Bowel sounds heard in all quadrants. J-tube site is healthy. EXTREMITIES: Without cyanosis, clubbing. Trace edema. CENTRAL NERVOUS SYSTEM: Awake and responsive. Cranial nerves 2 through 12 intact. Grossly nonfocal. IMPRESSION: 1. Gastric leak, status post bariatric surgery, requiring gastric stent placement and n.p.o. 2. Abdominal wound, requiring wound care. 3. Diabetes mellitus type 2. 4. Hypertension. 5. Dyslipidemia. 6. Coronary artery disease. Blood sugars are well controlled at 166, 136, 134, and 157. PLAN: 1. Continue J-tube feeding. 2. Wound care. 3. Monitor blood sugars. 4. Await appointment in [place] for either repositioning or placing another gastric stent. 5. Activity as tolerated. 6. Discussed with the patient and family in detail. All questions answered. Job ID: [id number]
[2018-11-19] MEDS: Rosuvastatin 10 MG TAB PER TUBE SCH (21:15)
[2018-11-19] MEDS: Ezetimibe 10 MG TAB PER TUBE SCH (21:15)
[2018-11-19] MEDS: Calcium Carbonate 500 MG ChewTAB PER TUBE SCH (21:15)
[2018-11-20 05:31] LABS: #Basophils 0.1 thou/uL (0.0-0.2); #Eosinphils 0.1 thou/uL (0.0-0.7); #Lymphocytes 1.7 thou/uL (1.20-3.40); #Monocytes 0.8 thou/uL (0.11-0.59); %Basophils 1.6 % (0.0-1.0); %Eosinophils 1.7 % (0.0-10.0); %Lymphocytes 25.4 % (21.0-51.0); %Monocytes 11.3 % (0.0-10.0); Hemoglobin 7.9 g/dL (12.0-16.0); Mean Corpuscular HGB CONC 29.6 g/dL (32.0-36.0); Mean Corpuscular Hemoglobin 25.1 pg (27.0-31.0); Mean Platelet Volume 7.8 fL (7.4-10.4); Platelet Count 288 thou/uL (130-400); Red Blood Cell (RBC) Count 3.13 mill/uL (4.20-5.40); White Blood Cell (WBC) Count 6.7 thou/uL (4.8-10.8)
[2018-11-20 05:52] LABS: Anion Gap 12 mmol/L (10-20); BUN (Urea Nitrogen) 17 mg/dL (9.8-20.1); Calc. Creatinine Clearance 95 mL/min (70-130); Calcium 8.5 mg/dL (7.8-10.44); Carbon Dioxide 29 mmol/L (22-29); Chloride 103 mmol/L (98-107); Estimated GFR-MDRD 81; Glucose 140 mg/dL (70-105); Potassium 3.8 mmol/L (3.5-5.1); Sodium 140 mmol/L (136-145)
[2018-11-20] MEDS ORDERED: Furosemide 40 MG TAB PO SCH (06:45)
[2018-11-20] MEDS: Ondansetron PF 4 MG/2 ML Vial IVP PRN ×2 (07:54→20:06)
[2018-11-20] MEDS: Hydrocodone-Acetamin 15 ML UDCUP PER TUBE PRN ×3 (07:54→21:23)
[2018-11-20] MEDS: Pantoprazole 40 MG VIAL IVP SCH ×2 (07:54→20:06)
[2018-11-20] MEDS: Sodium Chloride 0.9% (PF) 10 ML VIAL FS PRN ×2 (07:54→20:06)
[2018-11-20] MEDS: Aspirin Chewable 81 MG TAB PER TUBE SCH (09:32)
[2018-11-20] MEDS: Fenofibrate Nanocrystallized 145 MG TAB PER TUBE SCH (09:32)
[2018-11-20] MEDS: Gabapentin 300 MG CAP PO SCH ×2 (09:32→21:22)
[2018-11-20] MEDS: Carvedilol 3.125 MG TAB PER TUBE SCH ×2 (09:32→21:22)
[2018-11-20] MEDS: Lisinopril 10 MG TAB PER TUBE SCH (09:33)
[2018-11-20] MEDS: Lantus 1000 UNITS/10 ML VIAL SC SCH ×2 (09:33→21:24)
[2018-11-20] MEDS: Saccharomyces boulardii 250 MG CAP PER TUBE SCH (09:34)
[2018-11-20] MEDS: Multivitamin W/ Minerals 1 TAB PER TUBE SCH (09:34)
[2018-11-20] MEDS: Loratadine 10 MG TAB PER TUBE SCH (09:34)
[2018-11-20] MEDS: Sodium Hypochlorite 0.25% Solution 480 ML BOT TOP SCH ×2 (09:34→21:25)
[2018-11-20] MEDS ORDERED: Furosemide 40 MG/4 ML VIAL SLOW IVP SCH (17:00)
--- NOTE | 2018-11-20 17:09 | PRG ---
DATE OF SERVICE: 11/20/2018 SUBJECTIVE: The patient is sitting up, visiting with family. States that she did urinate some today after oral Lasix, but not as much as she wishes. Still having significant edema. No shortness of breath or chest pain. OBJECTIVE: VITAL SIGNS: Shows her temperature is 98, pulse 103, respirations 20, O2 saturations 97% on room air, and blood pressure is 134/69. LUNGS: Clear. CARDIAC: Shows regular rhythm. ABDOMEN: Soft and nontender. There is 2+ edema of both feet. LABORATORY DATA: Shows white count 6700, hematocrit 26, hemoglobin is 7.9, and platelet count 288,000. Sodium 140, potassium 3.8, chloride 103, bicarb 29, BUN 17, and creatinine 0.75. Accu-Cheks range 133 to 186. ASSESSMENT AND PLAN: 1. Gastric leak, status post bariatric surgery requiring stent placement, now n.p.o. on tube feeding. No evidence of infection. 2. Abdominal wound, requiring wound care, healing slowly. 3. Diabetes type 2, controlled to goal. 4. Hypertension, controlled to goal. 5. Peripheral edema, most likely due to low albumin plus slight fluid overload. Minimal response to oral Lasix and will give 40 of Lasix IV now. 6. Coronary artery disease, asymptomatic. Dr. Wiggins will be back tomorrow. Job ID: [id number]
[2018-11-20] MEDS: Calcium Carbonate 500 MG ChewTAB PER TUBE SCH (21:22)
[2018-11-20] MEDS: Rosuvastatin 10 MG TAB PER TUBE SCH (21:22)
[2018-11-20] MEDS: Ezetimibe 10 MG TAB PER TUBE SCH (21:22)
[2018-11-21] MEDS: Ondansetron PF 4 MG/2 ML Vial IVP PRN (03:43)
[2018-11-21] MEDS: Furosemide 40 MG/4 ML VIAL SLOW IVP SCH (05:14)
[2018-11-21] MEDS: Hydrocodone-Acetamin 15 ML UDCUP PER TUBE PRN ×3 (07:36→20:37)
[2018-11-21] MEDS: Pantoprazole 40 MG VIAL IVP SCH ×2 (07:38→20:35)
[2018-11-21] MEDS: Sodium Chloride 0.9% (PF) 10 ML VIAL FS PRN (07:38)
[2018-11-21] MEDS: Multivitamin W/ Minerals 1 TAB PER TUBE SCH (09:22)
[2018-11-21] MEDS: Lantus 1000 UNITS/10 ML VIAL SC SCH ×2 (09:22→20:35)
[2018-11-21] MEDS: Fenofibrate Nanocrystallized 145 MG TAB PER TUBE SCH (09:22)
[2018-11-21] MEDS: Carvedilol 3.125 MG TAB PER TUBE SCH ×2 (09:23→20:34)
[2018-11-21] MEDS: Loratadine 10 MG TAB PER TUBE SCH (09:23)
[2018-11-21] MEDS: Gabapentin 300 MG CAP PO SCH ×2 (09:23→20:34)
[2018-11-21] MEDS: Saccharomyces boulardii 250 MG CAP PER TUBE SCH (09:23)
[2018-11-21] MEDS: Aspirin Chewable 81 MG TAB PER TUBE SCH (09:23)
[2018-11-21] MEDS: Lisinopril 10 MG TAB PER TUBE SCH (09:23)
[2018-11-21] MEDS: Sodium Hypochlorite 0.25% Solution 480 ML BOT TOP SCH ×2 (09:26→20:36)
[2018-11-21] MEDS: HumaLOG 300 UNITS/3 ML VIAL SC PRN (12:50)
--- NOTE | 2018-11-21 14:15 | PRG ---
DATE OF SERVICE: 11/21/2018 SUBJECTIVE: Ms. Schultz is doing the same. She states that the Lasix is helping with her swelling. She is still trying to sort out the finances for her repeat gastric stent procedure. Her mother is in the room. No concerns or questions. OBJECTIVE: VITAL SIGNS: She is afebrile. Heart rate 95, respirations 20, oxygen saturation 97% on room air, blood pressure 127/70. CARDIOVASCULAR SYSTEM: S1 and S2 plus. RESPIRATORY SYSTEM: Normal vesicular breath sounds. ABDOMEN: Soft and nontender. Bowel sounds heard in all quadrants. Wound with dressing. J-tube site is healthy. EXTREMITIES: Without cyanosis or clubbing. Trace edema. CENTRAL NERVOUS SYSTEM: Awake and responsive. Cranial nerves 2 through 12 grossly intact. Generalized weakness. IMPRESSION: 1. Abdominal wound, requiring wound care. 2. Gastric leak, requiring stent placement and n.p.o. 3. Diabetes mellitus, type 2. 4. Hypertension. 5. Dyslipidemia. 6. Coronary artery disease. 7. Depression and anxiety. 8. Lower extremity edema, likely due to IV antibiotics. PLAN: 1. Continue current medications. 2. Recheck CBC and BMP due to the patient is being on IV Lasix. 3. Wound care. 4. Nutritional support. 5. Accu-Cheks with sliding scale coverage. 6. Routine laboratory values. 7. Physical therapy. 8. Await scheduling of the gastric stent placement. Job ID: [id number]
[2018-11-21] MEDS: Ezetimibe 10 MG TAB PER TUBE SCH (20:34)
[2018-11-21] MEDS: Calcium Carbonate 500 MG ChewTAB PER TUBE SCH (20:34)
[2018-11-21] MEDS: Rosuvastatin 10 MG TAB PER TUBE SCH (20:35)
[2018-11-22] MEDS: Ondansetron PF 4 MG/2 ML Vial IVP PRN ×3 (03:52→20:20)
[2018-11-22] MEDS: Furosemide 40 MG/4 ML VIAL SLOW IVP SCH (05:04)
[2018-11-22 05:41] LABS: #Basophils 0.1 thou/uL (0.0-0.2); #Eosinphils 0.1 thou/uL (0.0-0.7); #Lymphocytes 1.7 thou/uL (1.20-3.40); #Monocytes 0.8 thou/uL (0.11-0.59); %Basophils 1.6 % (0.0-1.0); %Eosinophils 1.7 % (0.0-10.0); %Monocytes 11.3 % (0.0-10.0); %Neutrophils 51.9 % (42.0-75.0); Hemoglobin 8.2 g/dL (12.0-16.0); Mean Corpuscular HGB CONC 30.6 g/dL (32.0-36.0); Mean Corpuscular Hemoglobin 25.7 pg (27.0-31.0); Mean Corpuscular Volume 83.9 fL (78.0-98.0); Mean Platelet Volume 8.4 fL (7.4-10.4); Platelet Count 293 thou/uL (130-400); RBC Distribution Width 17.3 % (11.5-14.5); Red Blood Cell (RBC) Count 3.21 mill/uL (4.20-5.40); White Blood Cell (WBC) Count 6.2 thou/uL (4.8-10.8)
[2018-11-22 07:53] LABS: Anion Gap 15 mmol/L (10-20); BUN (Urea Nitrogen) 22 mg/dL (9.8-20.1); Calc. Creatinine Clearance 94 mL/min (70-130); Calcium 8.6 mg/dL (7.8-10.44); Carbon Dioxide 29 mmol/L (22-29); Chloride 100 mmol/L (98-107); Estimated GFR-MDRD 79; Glucose 124 mg/dL (70-105); Potassium 3.5 mmol/L (3.5-5.1); Sodium 140 mmol/L (136-145)
[2018-11-22] MEDS: Hydrocodone-Acetamin 15 ML UDCUP PER TUBE PRN ×3 (09:04→20:55)
[2018-11-22] MEDS: Fenofibrate Nanocrystallized 145 MG TAB PER TUBE SCH (09:05)
[2018-11-22] MEDS: Carvedilol 3.125 MG TAB PER TUBE SCH ×2 (09:05→20:56)
[2018-11-22] MEDS: Lantus 1000 UNITS/10 ML VIAL SC SCH ×2 (09:05→21:23)
[2018-11-22] MEDS: Pantoprazole 40 MG VIAL IVP SCH ×2 (09:05→20:18)
[2018-11-22] MEDS: Multivitamin W/ Minerals 1 TAB PER TUBE SCH (09:05)
[2018-11-22] MEDS: Lisinopril 10 MG TAB PER TUBE SCH (09:05)
[2018-11-22] MEDS: Aspirin Chewable 81 MG TAB PER TUBE SCH (09:05)
[2018-11-22] MEDS: Saccharomyces boulardii 250 MG CAP PER TUBE SCH (09:05)
[2018-11-22] MEDS: Sodium Chloride 0.9% (PF) 10 ML VIAL FS PRN ×2 (09:05→20:18)
[2018-11-22] MEDS: Loratadine 10 MG TAB PER TUBE SCH (09:05)
[2018-11-22] MEDS: Gabapentin 300 MG CAP PO SCH ×2 (09:06→20:56)
[2018-11-22] MEDS: Sodium Hypochlorite 0.25% Solution 480 ML BOT TOP SCH ×2 (09:19→20:57)
[2018-11-22] MEDS: HumaLOG 300 UNITS/3 ML VIAL SC PRN (12:35)
--- NOTE | 2018-11-22 15:00 | PRG ---
DATE OF SERVICE: 11/22/2018 SUBJECTIVE: Ms. Schultz is doing the same. Denies any complaints. Resting comfortably. Apparently, things are being arranged for her to go to [place] on to get her gastric stent placed. OBJECTIVE: VITAL SIGNS: She is afebrile. Heart rate 93, respirations 20, oxygen saturation 95% on room air, blood pressure 126/60. CARDIOVASCULAR: S1, S2 plus. RESPIRATORY: Normal vesicular breath sounds. ABDOMEN: Soft, nontender, and an abdominal wound with dressing. J-tube site is healthy. EXTREMITIES: Without cyanosis or clubbing. Trace edema. Peripheral pulses are palpable. CENTRAL NERVOUS SYSTEM: Generalized weakness. LABORATORY VALUES: White count of 6.2, H and H are 8.2 and 26.9. Sodium 140, potassium 3.5, BUN and creatinine are 22 and 0.76. Blood sugars are 169, 149, 149, and 161. IMPRESSION: 1. Gastric leak, status post bariatric surgery, requiring gastric stent placement and stomach rest. 2. Diabetes mellitus type 2. 3. Hypertension. 4. Dyslipidemia. 5. Coronary artery disease. 6. Depression and anxiety. 7. Much improved lower extremity edema. PLAN: 1. Stop Lasix. 2. Continue other medications. 3. DVT prophylaxis. The patient is actually active and does not need any. 4. Decubitus precautions. 5. Wound care. 6. Accu-Cheks with sliding scale coverage. 7. Tube feeding. 8. Outpatient followup with gastric surgeon in [place]. 9. Discussed with the patient and nursing in detail. All questions answered. Job ID: [id number]
[2018-11-22] MEDS ORDERED: Pantoprazole 40 MG VIAL ONE (20:11)
[2018-11-22] MEDS: Rosuvastatin 10 MG TAB PER TUBE SCH (20:56)
[2018-11-22] MEDS: Calcium Carbonate 500 MG ChewTAB PER TUBE SCH (20:56)
[2018-11-22] MEDS: Ezetimibe 10 MG TAB PER TUBE SCH (20:56)
[2018-11-23] MEDS: Ondansetron PF 4 MG/2 ML Vial IVP PRN ×3 (04:11→21:09)
[2018-11-23] MEDS: Aspirin Chewable 81 MG TAB PER TUBE SCH (08:47)
[2018-11-23] MEDS: Fenofibrate Nanocrystallized 145 MG TAB PER TUBE SCH (08:47)
[2018-11-23] MEDS: Gabapentin 300 MG CAP PO SCH ×2 (08:47→20:38)
[2018-11-23] MEDS: Carvedilol 3.125 MG TAB PER TUBE SCH ×2 (08:47→20:37)
[2018-11-23] MEDS: Multivitamin W/ Minerals 1 TAB PER TUBE SCH (08:48)
[2018-11-23] MEDS: Lisinopril 10 MG TAB PER TUBE SCH (08:48)
[2018-11-23] MEDS: Lantus 1000 UNITS/10 ML VIAL SC SCH ×3 (08:48→20:46)
[2018-11-23] MEDS: Loratadine 10 MG TAB PER TUBE SCH (08:48)
[2018-11-23] MEDS: Sodium Chloride 0.9% (PF) 10 ML VIAL FS PRN (08:49)
[2018-11-23] MEDS: Pantoprazole 40 MG VIAL IVP SCH (08:49)
[2018-11-23] MEDS: Saccharomyces boulardii 250 MG CAP PER TUBE SCH (08:50)
[2018-11-23] MEDS: Hydrocodone-Acetamin 15 ML UDCUP PER TUBE PRN ×2 (08:54→20:41)
[2018-11-23] MEDS: Sodium Hypochlorite 0.25% Solution 480 ML BOT TOP SCH (09:22)
[2018-11-23] MEDS: HumaLOG 300 UNITS/3 ML VIAL SC PRN (12:20)
--- NOTE | 2018-11-23 12:52 | PRG ---
DATE OF SERVICE: 11/23/2018 SUBJECTIVE: Ms. Schultz is scheduled for her gastric stenting tomorrow. Her is going to take her in his vehicle to [place]. Hopefully, she will be discharged the same day to come back here with instructions to start on a diet. OBJECTIVE: VITAL SIGNS: She is afebrile, heart rate 97, respirations 16, oxygen saturation 97% on room air, and blood pressure 128/60. CARDIOVASCULAR SYSTEM: S1 and S2 plus. RESPIRATORY SYSTEM: Normal vesicular breath sounds. ABDOMEN: Soft and nontender. Bowel sounds heard in all quadrants. Abdominal wound with dressing. J-tube site is healthy. EXTREMITIES: Without cyanosis or clubbing. Trace edema. Peripheral pulses are palpable. CENTRAL NERVOUS SYSTEM: Awake and responsive. Grossly nonfocal. LABORATORY DATA: Blood sugars are 141, 164, 145, and 186. IMPRESSION: 1. Diabetes mellitus, type 2. 2. Hypertension. 3. Dyslipidemia. 4. Coronary artery disease. 5. Abdominal wound, requiring dressing. 6. Gastric leak, requiring no p.o. intake. PLAN: 1. Continue current medications. 2. Nutritional support with J-tube feeding. 3. Accu-Cheks with sliding scale coverage. 4. Decubitus precautions. 5. Wound care. 6. Activity as tolerated. 7. Await placement of gastric stent. 8. Discussed with the patient and family in detail. All questions answered. Job ID: [id number]
[2018-11-23] MEDS: Calcium Carbonate 500 MG ChewTAB PER TUBE SCH (20:37)
[2018-11-23] MEDS: Ezetimibe 10 MG TAB PER TUBE SCH (20:38)
[2018-11-23] MEDS: Famotidine/PF 20 mg/2ml Vial SLOW IVP SCH (20:38)
[2018-11-23] MEDS: Rosuvastatin 10 MG TAB PER TUBE SCH (20:39)
[2018-11-24] MEDS: Sodium Hypochlorite 0.25% Solution 480 ML BOT TOP SCH ×2 (06:55→06:56)
[2018-11-24] MEDS: Famotidine/PF 20 mg/2ml Vial SLOW IVP SCH (07:22)
[2018-11-24] MEDS: Aspirin Chewable 81 MG TAB PER TUBE SCH (07:22)
[2018-11-24] MEDS: Gabapentin 300 MG CAP PO SCH (07:23)
[2018-11-24] MEDS: Lantus 1000 UNITS/10 ML VIAL SC SCH (07:23)
[2018-11-24] MEDS: Lisinopril 10 MG TAB PER TUBE SCH (07:23)
[2018-11-24] MEDS: Fenofibrate Nanocrystallized 145 MG TAB PER TUBE SCH (07:23)
[2018-11-24] MEDS: Loratadine 10 MG TAB PER TUBE SCH (07:23)
[2018-11-24] MEDS: Saccharomyces boulardii 250 MG CAP PER TUBE SCH (07:24)
[2018-11-24] MEDS: Multivitamin W/ Minerals 1 TAB PER TUBE SCH (07:24)
[2018-11-24] MEDS: Carvedilol 3.125 MG TAB PER TUBE SCH (07:29)
[2018-11-24] MEDS: Ondansetron PF 4 MG/2 ML Vial IVP PRN (07:29)
[2018-11-24 07:39] VITALS: BP 139/64; TEMP 98.4
--- NOTE | 2018-11-25 10:16 | DIS ---
DATE OF ADMISSION: 10/26/2018 DATE OF DISCHARGE: 11/24/2018 PRINCIPAL DIAGNOSES: 1. Persistent gastric leak, status post bariatric surgery. 2. Diabetes mellitus, type 2. 3. Hypertension. 4. Dyslipidemia. 5. Coronary artery disease. 6. Depression and anxiety. 7. Abdominal wound, requiring wound care. 8. J-tube placement for nutrition. 9. Trace pedal edema, much improved. COMPLICATIONS: None. ADVERSE REACTIONS: None. PROCEDURES: Wound care. CONSULTATIONS: Physical Therapy and Occupational Therapy. HOSPITAL COURSE: The patient was admitted for a continued nutritional support through her J-tube and wound care for her complex abdominal wound. She did develop some foul smelling drainage and was started on IV antibiotics due to multiple organisms growing from the culture. She was evaluated by Dr. Yuen and was advised to continue the antibiotics for a total of 10 days. After 3 weeks of being here, she underwent a modified barium swallow, which unfortunately continues to show a Gastrografin leak and so she has been scheduled to have possibly another gastric stent placed today and has gone to [place]. Apparently, this morning, her insurance said she has to be discharged from here and readmitted as we do not know if what she is having is an outpatient procedure or whether she will be admitted to the hospital and that is why I am dictating this summary. Clinically, she has been doing well, ambulating in the hallways, tolerating her feedings, pain is much improved, and her abdominal wound is improving. On the day of discharge, she is afebrile, heart rate 93, respirations 16, oxygen saturation 96% on room air, and blood pressure 139/64. DISCHARGE MEDICATIONS: Pretty much the same as admission and they were marked. For details, please see chart. PLAN: The plan is for her to come back as a new admit if she comes back after the procedure and then go home from here. Job ID: [id number]
== END 2018-11-24 13:21 | disposition short-term general hospital (02) | DRG 395 ==
LOC: NAV ACUTE 16:04
PROVIDERS: ADMIT Internal Medicine; ATTEND Internal Medicine
PROC: 0DHA3UZ Insertion of Feeding Device into Jejunum, Percutaneous Approach (ICD-10-PCS; principal; 2018-10-26)
PROC: 3E0H76Z Introduction of Nutritional Substance into Lower GI, Via Natural or Artificial Opening (ICD-10-PCS; 2018-10-26)
DX: K95.89 Other complications of other bariatric procedure (principal); I25.10 Atherosclerotic heart disease of native coronary artery without angina pectoris; E11.9 Type 2 diabetes mellitus without complications; I10 Essential (primary) hypertension; E78.5 Hyperlipidemia, unspecified; F32.9 Major depressive disorder, single episode, unspecified; F41.9 Anxiety disorder, unspecified; K29.70 Gastritis, unspecified, without bleeding; R60.0 Localized edema; Z95.1 Presence of aortocoronary bypass graft; Z98.51 Tubal ligation status; Z79.82 Long term (current) use of aspirin; Z79.899 Other long term (current) drug therapy
CPT/HCPCS: 36415; 36416; 80048; 80053; 80202; 83605; 85025; 87070; 87077; 87186; 87205; 87324; 87449; 97602; C9113; J1815; J1940; J2248; J2405; J2543; J3370; J3490; J7050; S0028

== ENCOUNTER 2018-11-24 20:24 | Inpatient (IN) | payer MEDICARE, MEDICAID ==
[2018-11-25] MEDS ORDERED: ALPRAZolam 0.5 MG TAB PER TUBE PRN (00:47)
[2018-11-25] MEDS ORDERED: Sodium Bicarbonate Tab 325 MG TAB PER TUBE PRN (00:58)
[2018-11-25] MEDS ORDERED: HumaLOG 300 UNITS/3 ML VIAL SC PRN (01:28)
[2018-11-25] MEDS ORDERED: Dextrose 50% Abboject 50 ML SYRINGE IVP PRN (01:28)
[2018-11-25] MEDS ORDERED: Dextrose 5% in Water 1,000 ML IV PRN (01:28)
[2018-11-25] MEDS: Hydrocodone-Acetamin 15 ML UDCUP PER TUBE PRN ×3 (05:30→21:11)
[2018-11-25] MEDS ORDERED: Sodium Chloride 0.9% 20 ML ONE (08:00)
[2018-11-25] MEDS: Carvedilol 3.125 MG TAB PER TUBE SCH ×2 (08:30→16:19)
[2018-11-25] MEDS: Loratadine 10 MG TAB PER TUBE SCH (08:31)
[2018-11-25] MEDS: Sodium Chloride 0.9% (PF) 10 ML VIAL FS PRN (08:31)
[2018-11-25] MEDS: Lantus 1000 UNITS/10 ML VIAL SC SCH ×2 (08:31→21:15)
[2018-11-25] MEDS: Gabapentin 300 MG CAP PO SCH ×2 (08:31→21:16)
[2018-11-25] MEDS: Pantoprazole 40 MG VIAL IVP SCH ×2 (08:31→21:14)
[2018-11-25] MEDS: Fenofibrate Nanocrystallized 145 MG TAB PER TUBE SCH (08:31)
[2018-11-25] MEDS: Multivitamin W/ Minerals 1 TAB PER TUBE SCH (08:31)
[2018-11-25] MEDS: Lisinopril 10 MG TAB PER TUBE SCH (08:31)
[2018-11-25] MEDS: Saccharomyces boulardii 250 MG CAP PER TUBE SCH (08:31)
[2018-11-25] MEDS: Aspirin Chewable 81 MG TAB PER TUBE SCH (08:31)
[2018-11-25] MEDS: HumaLOG 300 UNITS/3 ML VIAL SC PRN ×2 (12:10→16:20)
--- NOTE | 2018-11-25 13:41 | HP ---
HISTORY OF PRESENT ILLNESS: Ms. Schultz is a well-developed, well-nourished, very pleasant, 53-year-old white female, who was discharged yesterday and went to [place] because she had a persisting gastric leak, status post bariatric surgery. She had stents placed, but it continued to leak. She was discharged yesterday and is supposed to go to [place] for further evaluation and correction of the leak. The patient states the doctor in [place] did an EGD and actually oversewed the area that was leaking in her stomach. She states that he said that she is not to eat anything for 7 days, but is supposed to continue to have feedings per her J-tube. After 7 days, they are supposed to re-evaluate and see if she has a leak. If she does not have a leak, then she will be started on clear liquids and slowly progressed. The patient is very happy that they were able to oversew the leak and we will see how that does. Past medical history reveals that this all started with a bariatric surgery. The patient did well, went home, was eating well, and returned septic and had CPR initiated. She eventually was found to have a gastric leak, but not at the suture line. She had a washout procedure done twice and eventually was stabilized and had a stent placed. She was stabilized and transferred to [facility] and now is here for further management again. She was discharged yesterday, went to [place], had her leak oversewn and now has returned back to [facility] for continued stay here. The patient states she is doing well and is excited about possibly healing up. PAST MEDICAL HISTORY: Reveals: 1. Coronary artery disease. 2. Diabetes. 3. Hypertension. 4. Hyperlipidemia. 5. Anxiety and depressive disorder. 6. Generalized weakness. 7. Morbid obesity. PAST SURGICAL HISTORY: 1. In 2008, CABG. 2. Tubal ligation. 3. Laparoscopic band for obesity, which was later removed. 4. Pilonidal cyst. 5. Gastric sleeve with multiple repairs of gastric perforation and J-tube placement. 6. Gastric stenting. 7. Oversewing of the gastric leak in [place] yesterday. ALLERGIES: REVEALED THE PATIENT IS ALLERGIC TO TRAMADOL. MEDICATIONS: Present medications reveal she is presently on the followin. Xanax 0.5 p.r.n. anxiety. 2. q.6 hours p.r.n. severe pain. 3. Aspirin 81 mg daily. 4. Tums 500 mg at bedtime. 5. Carvedilol 3.125 mg b.i.d. 6. Zetia 10 mg daily. 7. Pepcid 40 mg at bedtime. 8. Tricor 145 mg daily. 9. Gabapentin 300 mg b.i.d. 10. . 11. Lantus 21 units subcu q.a.m. 12. Lantus 21 units subcu at bedtime. 13. Sliding scale insulin. 14. Theragran-M daily. 15. Lisinopril 10 mg daily. 16. Loratadine 10 mg daily. 17. Ondansetron 4 mg IV q.6 hours p.r.n. nausea and vomiting. 18. Protonix 40 mg IV q.12 hours. 19. Crestor 40 mg at bedtime. 20. Florastor 250 mg daily. 21. Zoloft 100 mg daily. 22. Sodium bicarb 650 p.r.n. FAMILY HISTORY: Noncontributory. SOCIAL HISTORY: Reveals the patient denies alcohol. Denies tobacco. Denies recreational drug use. REVIEW OF SYSTEMS: Reveals the patient denies fever and chills at this time. She denies any GI problems including nausea, vomiting, abdominal pain, diarrhea, or constipation. She denies shortness of breath, cough, cold, or congestion. She denies chest pain, palpitations, racing or skipping heartbeats, or bradycardia. GI gutierrez, she denies nausea, vomiting, diarrhea, hematemesis, melena, or hematochezia. gutierrez, denies urgency, frequency, dysuria, or hematuria. Denies syncopal episodes, weakness, numbness, or fainting spells. Denies any change in her vision, speech, or hearing. The patient remains n.p.o. The patient denies any skin rashes. PHYSICAL EXAMINATION: GENERAL: This is a well-developed, well-nourished, slightly obese 53-year-old female, who I have not seen before. The patient is resting comfortably in her bed and has no complaints of pain at this time. VITAL SIGNS: Reveal blood pressure this morning was 150/67, pulse 95 to 98, respirations 16 to 18, O2 saturation 97% to 98% on room air, and T-max 97.4. GENERAL: This is a well-developed, well-nourished, pleasant, slightly obese female, in no apparent distress at this time. HEENT: Reveals normocephalic and nontraumatic cranium. Pupils are equally round and reactive. Extraocular movements are intact. Nose and throat are slightly dry, but clear. NECK: Supple without masses, nodes, or bruits. CHEST: Clear to auscultation. No rales, rhonchi, or wheezes are heard. HEART: Reveals a regular rate and rhythm without murmurs, gallops, or rubs. ABDOMEN: Soft with a large bandage down the middle, where she is still closing and healing well. I did not uncover it at this time. EXTREMITIES: Reveal no clubbing, cyanosis, or edema. : Deferred. HEAD GRINDER: The patient is awake and alert and oriented x4. Cranial nerves 2 through 12 are grossly intact. Generalized weakness. ASSESSMENT: 1. Gastric leak. The patient returns from [place] after being oversewn. 2. Diabetes, type 2. 3. Coronary artery disease. 4. Hypertension. 5. Hyperlipidemia. 6. 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 7. Anxiety and depressive disorder. 8. Generalized weakness. PLAN: 1. Restart previous medications that the patient was on prior to being discharged. 2. Continue J-tube feedings with Glucerna. 3. Accu-Cheks a.c. and at bedtime with sliding scale and long-acting. 4. Pain control. 5. Monitor the patient's laboratories. 6. Accu-Cheks a.c. and at bedtime. 7. The patient is very active and therefore does not need DVT prophylaxis. 8. Continue physical therapy and occupational therapy and wound care. Job ID: [id number]
[2018-11-25] MEDS: Famotidine 20 MG TAB PER TUBE SCH (21:16)
[2018-11-25] MEDS: Calcium Carbonate 500 MG ChewTAB PER TUBE SCH (21:16)
[2018-11-25] MEDS: Rosuvastatin 10 MG TAB PER TUBE SCH (21:16)
[2018-11-25] MEDS: Ezetimibe 10 MG TAB PER TUBE SCH (21:16)
[2018-11-26] MEDS: Hydrocodone-Acetamin 15 ML UDCUP PER TUBE PRN ×3 (05:25→20:36)
[2018-11-26] MEDS: HumaLOG 300 UNITS/3 ML VIAL SC PRN ×3 (05:34→16:41)
[2018-11-26] MEDS ORDERED: Sodium Chloride 0.9% 20 ML ONE (07:48)
--- NOTE | 2018-11-26 08:40 | PRG ---
DATE OF SERVICE: 11/26/2018 SUBJECTIVE: Ms. Schultz is a 53-year-old white female who status post bariatric procedure had a leak that was not at the suture site. She had stents placed, but continued to leak. She was discharged several days ago, went to [place] where they oversewed her leak. She was discharged and came back from [place] and was readmitted here for continued therapy. She is instructed that she is supposed to be n.p.o. with continued J-tube feedings for the next 7-10 days. After that time, she will be re-evaluated for leak with swallowing evaluation. If she does not have a leak then she will be started on clear liquids and slowly progressed until she can go home. The patient states she actually feels much better since she went to [place] and had her procedure. She states she does not have nausea. She does not have abdominal pain or bloating, so she is very pleased with how she is doing. OBJECTIVE: VITAL SIGNS: Reveal blood pressure 153/62, pulse 84-98, respirations 16-18, O2 saturation 98% on room air, T-max 97.4. GENERAL: This is a well-developed, well-nourished, very pleasant, slightly obese white female, in no apparent distress at this time. HEENT: Normocephalic and nontraumatic cranium. Pupils are equal, round and reactive. Extraocular movements are intact. Nose and throat are slightly dry. NECK: Supple without masses, nodes, or bruits. CHEST: Clear to auscultation. No rales, rhonchi, wheezes are heard. HEART: Reveals a regular rate and rhythm without murmurs, gallops or rubs. ABDOMEN: Soft, nontender without organomegaly. Normal bowel sounds are noted. J-tube is noted to be clean and clear. Large bandage over the right middle area, which is still healing well. GENITOURINARY: Deferred. EXTREMITIES: Reveal no clubbing, cyanosis, or edema. NEUROLOGIC: The patient is awake and oriented x4. I did ask the patient, if she goes walking to put on a gown as she goes in the joe, because we have a leukemic patient who is on neutropenic precautions and we would rather not get them close together. ASSESSMENT: 1. Gastric leak. The patient returns from [place] after being oversewn. 2. Diabetes type. 3. Coronary artery disease. 4. Hypertension. 5. Hyperlipidemia. 6. Gastric sleeve complications from gastric perforation requiring gastric stent and now oversewing. The patient also has jejunostomy tube placement and midline wound care. 7. Anxiety and depressive disorder. 8. Generalized weakness. PLAN: 1. Continue present medications. 2. Continue J-tube feedings with Glucerna. 3. Accu-Cheks a.c. and at bedtime with sliding scale long-acting. 4. Pain control. 5. Monitor the patient's laboratories. 6. Accu-Cheks. The patient is active, does not need DVT prophylaxis. 7. Continue PT and OT and wound care. Job ID: [id number]
[2018-11-26] MEDS: Lantus 1000 UNITS/10 ML VIAL SC SCH ×2 (08:43→20:39)
[2018-11-26] MEDS: Fenofibrate Nanocrystallized 145 MG TAB PER TUBE SCH (08:44)
[2018-11-26] MEDS: Aspirin Chewable 81 MG TAB PER TUBE SCH (08:44)
[2018-11-26] MEDS: Carvedilol 3.125 MG TAB PER TUBE SCH ×2 (08:44→16:41)
[2018-11-26] MEDS: Lisinopril 10 MG TAB PER TUBE SCH (08:44)
[2018-11-26] MEDS: Multivitamin W/ Minerals 1 TAB PER TUBE SCH (08:44)
[2018-11-26] MEDS: Gabapentin 300 MG CAP PO SCH ×2 (08:44→20:40)
[2018-11-26] MEDS: Loratadine 10 MG TAB PER TUBE SCH (08:44)
[2018-11-26] MEDS: Saccharomyces boulardii 250 MG CAP PER TUBE SCH (08:44)
[2018-11-26] MEDS: Pantoprazole 40 MG VIAL IVP SCH ×2 (08:44→20:38)
[2018-11-26] MEDS: Sodium Chloride 0.9% (PF) 10 ML VIAL FS PRN (08:45)
[2018-11-26] MEDS: Rosuvastatin 10 MG TAB PER TUBE SCH (20:40)
[2018-11-26] MEDS: Famotidine 20 MG TAB PER TUBE SCH (20:41)
[2018-11-26] MEDS: Ezetimibe 10 MG TAB PER TUBE SCH (20:41)
[2018-11-26] MEDS: Calcium Carbonate 500 MG ChewTAB PER TUBE SCH (20:41)
[2018-11-27] MEDS: Hydrocodone-Acetamin 15 ML UDCUP PER TUBE PRN ×3 (05:24→22:04)
[2018-11-27] MEDS: Lantus 1000 UNITS/10 ML VIAL SC SCH ×2 (08:40→20:24)
[2018-11-27] MEDS: Saccharomyces boulardii 250 MG CAP PER TUBE SCH (08:41)
[2018-11-27] MEDS: Multivitamin W/ Minerals 1 TAB PER TUBE SCH (08:41)
[2018-11-27] MEDS: Carvedilol 3.125 MG TAB PER TUBE SCH ×2 (08:41→16:07)
[2018-11-27] MEDS: Lisinopril 10 MG TAB PER TUBE SCH (08:41)
[2018-11-27] MEDS: Fenofibrate Nanocrystallized 145 MG TAB PER TUBE SCH (08:41)
[2018-11-27] MEDS: Gabapentin 300 MG CAP PO SCH ×2 (08:41→20:25)
[2018-11-27] MEDS: Loratadine 10 MG TAB PER TUBE SCH (08:41)
[2018-11-27] MEDS: Pantoprazole 40 MG VIAL IVP SCH ×2 (08:41→20:23)
[2018-11-27] MEDS: Aspirin Chewable 81 MG TAB PER TUBE SCH (08:41)
[2018-11-27] MEDS: Sodium Chloride 0.9% (PF) 10 ML VIAL FS PRN (08:42)
--- NOTE | 2018-11-27 10:01 | PRG ---
DATE OF SERVICE: 11/27/2018 SUBJECTIVE: Ms. Schultz is a 53-year-old white female, status post bariatric surgery that developed a leak, not at the suture site. She used to have stents placed, but it continued to leak. She was discharged several days ago, went to [place], where they oversewed her leak. She was discharged and came back from [place] and was readmitted for continued therapy here. The patient has been instructed that she is supposed to be n.p.o. with continued J-tube feedings for the next 7 to 10 days. At that time, she will be re-evaluated for leak with a swallowing evaluation. If she does not have a leak, then she will be started on clear liquids and slowly progressed until she can go home. The patient states she is doing very well, feels better. She has no concerns or complaints today. OBJECTIVE: VITAL SIGNS: Reveal blood pressure 108/54, pulse 80, respirations 18 to 22, O2 saturation of 97% on room air, and T-max 97.5. GENERAL: This is a well-developed, well-nourished, obese female, in no apparent distress at this time. HEENT: Reveals normocephalic and nontraumatic cranium. Pupils are equal, round, and reactive. Extraocular movements are intact. Nose and throat are moist. NECK: Supple without masses, nodes, or bruits. CHEST: Clear to auscultation. No rales, rhonchi, or wheezes are heard. HEART: Reveals a regular rate and rhythm without murmurs, gallops or rubs. ABDOMEN: Reveals a J-tube in place, clean and clear. Abdomen is soft and nontender without organomegaly. Normal bowel sounds are noted in all 4 quadrants. Right middle area of the abdomen has a large bandage over her incision site still. : Deferred. EXTREMITIES: Reveal no clubbing, cyanosis, or edema. NEUROLOGIC: The patient is oriented x4. ASSESSMENT: 1. Gastric leak that has been oversewn in [place]. 2. Diabetes type 2. 3. Coronary artery disease. 4. Hypertension. 5. Hyperlipidemia. 6. Gastric sleeve complications from gastric perforation requiring gastric stent and now gastric oversewing. 7. Jejunostomy tube for continued feeding at this time. 8. Anxiety and depressive disorder. 9. Generalized weakness. PLAN: 1. The patient's sugars are still a little elevated, so we have increase her Lantus from 21 b.i.d. to 24 b.i.d. 2. Continue present medications. 3. Continue J-tube feedings with Glucerna. 4. Accu-Cheks before meals and at bedtime with sliding scale as needed. 5. Pain control. 6. Monitor the patient's laboratories. 7. Stress ulcer prophylaxis. 8. Decubitus precautions. 9. The patient replaced with the patient does not need DVT prophylaxis because she is active. 10. Continue PT and OT. 11. Continue using J-tube feedings and the patient is n.p.o. until next Wednesday. 12. Schedule gastric leak study next week. Job ID: [id number]
[2018-11-27] MEDS: HumaLOG 300 UNITS/3 ML VIAL SC PRN ×2 (12:03→16:21)
[2018-11-27] MEDS: Rosuvastatin 10 MG TAB PER TUBE SCH (20:25)
[2018-11-27] MEDS: Calcium Carbonate 500 MG ChewTAB PER TUBE SCH (20:25)
[2018-11-27] MEDS: Famotidine 20 MG TAB PER TUBE SCH (20:26)
[2018-11-27] MEDS: Ezetimibe 10 MG TAB PER TUBE SCH (20:26)
[2018-11-28] MEDS: Aspirin Chewable 81 MG TAB PER TUBE SCH (08:32)
[2018-11-28] MEDS: Fenofibrate Nanocrystallized 145 MG TAB PER TUBE SCH (08:32)
[2018-11-28] MEDS: Gabapentin 300 MG CAP PO SCH ×2 (08:32→21:04)
[2018-11-28] MEDS: Carvedilol 3.125 MG TAB PER TUBE SCH ×2 (08:32→16:49)
[2018-11-28] MEDS: Lisinopril 10 MG TAB PER TUBE SCH (08:33)
[2018-11-28] MEDS: Lantus 1000 UNITS/10 ML VIAL SC SCH ×2 (08:33→21:16)
[2018-11-28] MEDS: Sodium Chloride 0.9% (PF) 10 ML VIAL FS PRN (08:34)
[2018-11-28] MEDS: Pantoprazole 40 MG VIAL IVP SCH ×2 (08:34→21:02)
[2018-11-28] MEDS: Loratadine 10 MG TAB PER TUBE SCH (08:34)
[2018-11-28] MEDS: Hydrocodone-Acetamin 15 ML UDCUP PER TUBE PRN ×2 (08:34→21:14)
[2018-11-28] MEDS: Multivitamin W/ Minerals 1 TAB PER TUBE SCH (08:34)
[2018-11-28] MEDS: Saccharomyces boulardii 250 MG CAP PER TUBE SCH (08:35)
[2018-11-28] MEDS: HumaLOG 300 UNITS/3 ML VIAL SC PRN (12:09)
--- NOTE | 2018-11-28 15:24 | PRG ---
DATE OF SERVICE: 11/28/2018 SUBJECTIVE: Ms. Schultz is resting in bed. Denies any complaints. Nursing noted some bright yellowish-green drainage in the wound site after cleaning the patient states that she feels much better since removal of the stent as she had apparently sutures placed on the leakage site, I discussed with Dr. Yuen this morning and he wants us to continue to monitor her abdominal wounds liquid drainage. He also wants us to monitor her vital signs closely, which we are doing. He is going to see her next week. He wants her to remain n.p.o., given information to the family. OBJECTIVE: VITAL SIGNS: She is afebrile. Heart rate 95, respirations 16, oxygen saturation 98% on room air, blood pressure 138/61. CARDIOVASCULAR: S1, S2 plus. RESPIRATORY: Normal vesicular breath sounds. ABDOMEN: Soft and nontender. Bowel sounds heard in all quadrants. EXTREMITIES: Without cyanosis or clubbing. ABDOMEN: Abdominal wound with dressing. J-tube site is healthy. Bowel sounds heard in all quadrants. CENTRAL NERVOUS SYSTEM: Awake and responsive. Generalized weakness. IMPRESSION: 1. Diabetes mellitus type 2. 2. Hypertension. 3. Dyslipidemia. 4. Coronary artery disease. 5. Abdominal wound, requiring dressing. 6. Possible biliary leak. PLAN: 1. Continue n.p.o. 2. Continue wound care. 3. Monitor for any signs of infection. 4. J-tube feeding. 5. Accu-Cheks with sliding scale coverage. 6. Routine laboratory values. 7. Wound care. 8. Follow up with Dr. Yuen next week. Job ID: [id number]
[2018-11-28] MEDS: Rosuvastatin 10 MG TAB PER TUBE SCH (21:03)
[2018-11-28] MEDS: Famotidine 20 MG TAB PER TUBE SCH (21:03)
[2018-11-28] MEDS: Calcium Carbonate 500 MG ChewTAB PER TUBE SCH (21:04)
[2018-11-28] MEDS: Ezetimibe 10 MG TAB PER TUBE SCH (21:04)
[2018-11-29] MEDS ORDERED: Sodium Chloride 0.9% 10 ML ONE (08:50)
[2018-11-29] MEDS: Carvedilol 3.125 MG TAB PER TUBE SCH ×2 (08:53→17:03)
[2018-11-29] MEDS: Gabapentin 300 MG CAP PO SCH ×2 (08:53→21:11)
[2018-11-29] MEDS: Aspirin Chewable 81 MG TAB PER TUBE SCH (08:53)
[2018-11-29] MEDS: Lantus 1000 UNITS/10 ML VIAL SC SCH ×2 (08:53→21:06)
[2018-11-29] MEDS: Fenofibrate Nanocrystallized 145 MG TAB PER TUBE SCH (08:53)
[2018-11-29] MEDS: Loratadine 10 MG TAB PER TUBE SCH (08:54)
[2018-11-29] MEDS: Multivitamin W/ Minerals 1 TAB PER TUBE SCH (08:54)
[2018-11-29] MEDS: Lisinopril 10 MG TAB PER TUBE SCH (08:54)
[2018-11-29] MEDS: Pantoprazole 40 MG VIAL IVP SCH ×2 (08:54→21:05)
[2018-11-29] MEDS: Sodium Chloride 0.9% (PF) 10 ML VIAL FS PRN (08:54)
[2018-11-29] MEDS: Saccharomyces boulardii 250 MG CAP PER TUBE SCH (09:13)
[2018-11-29] MEDS: Hydrocodone-Acetamin 15 ML UDCUP PER TUBE PRN ×2 (11:48→21:32)
--- NOTE | 2018-11-29 13:42 | PRG ---
DATE OF SERVICE: 11/29/2018 SUBJECTIVE: Ms. Schultz is doing well. Continues to have some bubbly drainage, but much less than yesterday. Tolerating her tube feeds. Continues to feel better. She is wondering if she can go home tomorrow after she sees Dr. Yuen. She states that her family can manage the tube feeding and they can rent a pump and home health can do wound care ones and her family can do the other time. I advised her to discuss that with Dr. Yuen as he will be the one managing the home health and see if he is comfortable with her going home. states that he would like her to stay here until she gets that swallow test done, so I just asked them to discuss everything with Dr. Yuen. OBJECTIVE: VITAL SIGNS: She is afebrile. Heart rate 80, respirations 18, oxygen saturation 99% on room air, and blood pressure 130/60. CARDIOVASCULAR SYSTEM: S1 and S2 plus. RESPIRATORY SYSTEMS: Normal vesicular breath sounds. ABDOMEN: Soft and nontender. Abdominal wound with dressing. J-tube site is healthy. Bowel sounds heard in all quadrants. EXTREMITIES: Without cyanosis or clubbing. Trace edema. CENTRAL NERVOUS SYSTEM: Awake and responsive. Generalized weakness. LABORATORY DATA: Blood sugars 140, 117, and 122. IMPRESSION: 1. Abdominal wound, requiring wound care. 2. Gastric leak, requiring stent placement now with removal of stent and suturing. 3. Diabetes mellitus type 2. 4. Hypertension. 5. Dyslipidemia. 6. Coronary artery disease. PLAN: 1. Recheck CBC and BMP in the morning. 2. Appointment with Dr. Yuen tomorrow. 3. Wound care. 4. J-tube feeding. 5. Accu-Cheks with sliding scale coverage. 6. Activity as tolerated. 7. Discharge plan per Dr. Yuen. Job ID: [id number]
[2018-11-29] MEDS: Rosuvastatin 10 MG TAB PER TUBE SCH (21:10)
[2018-11-29] MEDS: Ezetimibe 10 MG TAB PER TUBE SCH (21:11)
[2018-11-29] MEDS: Calcium Carbonate 500 MG ChewTAB PER TUBE SCH (21:11)
[2018-11-29] MEDS: Famotidine 20 MG TAB PER TUBE SCH (21:11)
[2018-11-30 05:40] LABS: #Basophils 0.1 thou/uL (0.0-0.2); #Eosinphils 0.2 thou/uL (0.0-0.7); #Lymphocytes 1.8 thou/uL (1.20-3.40); #Monocytes 0.5 thou/uL (0.11-0.59); %Basophils 2.3 % (0.0-1.0); %Eosinophils 3.9 % (0.0-10.0); %Lymphocytes 31.2 % (21.0-51.0); %Monocytes 9.5 % (0.0-10.0); %Neutrophils 53.1 % (42.0-75.0); Hemoglobin 8.7 g/dL (12.0-16.0); Mean Corpuscular Hemoglobin 25.8 pg (27.0-31.0); Mean Corpuscular Volume 85.9 fL (78.0-98.0); Mean Platelet Volume 8.3 fL (7.4-10.4); Platelet Count 284 thou/uL (130-400); RBC Distribution Width 17.8 % (11.5-14.5); Red Blood Cell (RBC) Count 3.37 mill/uL (4.20-5.40); White Blood Cell (WBC) Count 5.6 thou/uL (4.8-10.8)
[2018-11-30 05:52] LABS: Anion Gap 12 mmol/L (10-20); BUN (Urea Nitrogen) 18 mg/dL (9.8-20.1); Calc. Creatinine Clearance 98 mL/min (70-130); Calcium 8.8 mg/dL (7.8-10.44); Carbon Dioxide 27 mmol/L (22-29); Chloride 107 mmol/L (98-107); Estimated GFR-MDRD Greater than 90; Glucose 146 mg/dL (70-105); Potassium 3.8 mmol/L (3.5-5.1); Sodium 142 mmol/L (136-145)
[2018-11-30] MEDS ORDERED: Sodium Chloride 0.9% 20 ML ONE (08:23)
[2018-11-30] MEDS: Sodium Chloride 0.9% (PF) 10 ML VIAL FS PRN (08:54)
[2018-11-30] MEDS: Lantus 1000 UNITS/10 ML VIAL SC SCH ×2 (08:54→20:38)
[2018-11-30] MEDS: Pantoprazole 40 MG VIAL IVP SCH ×2 (08:54→20:39)
[2018-11-30] MEDS: Ondansetron PF 4 MG/2 ML Vial IVP PRN (08:54)
[2018-11-30] MEDS: Lisinopril 10 MG TAB PER TUBE SCH (08:55)
[2018-11-30] MEDS: Loratadine 10 MG TAB PER TUBE SCH (08:55)
[2018-11-30] MEDS: Fenofibrate Nanocrystallized 145 MG TAB PER TUBE SCH (08:55)
[2018-11-30] MEDS: Carvedilol 3.125 MG TAB PER TUBE SCH ×2 (08:55→17:45)
[2018-11-30] MEDS: Aspirin Chewable 81 MG TAB PER TUBE SCH (08:55)
[2018-11-30] MEDS: Multivitamin W/ Minerals 1 TAB PER TUBE SCH (08:55)
[2018-11-30] MEDS: Gabapentin 300 MG CAP PO SCH ×2 (08:55→20:38)
[2018-11-30] MEDS: Saccharomyces boulardii 250 MG CAP PER TUBE SCH (08:55)
[2018-11-30] MEDS: Hydrocodone-Acetamin 15 ML UDCUP PER TUBE PRN ×3 (09:14→21:30)
[2018-11-30] MEDS: HumaLOG 300 UNITS/3 ML VIAL SC PRN (12:32)
--- NOTE | 2018-11-30 16:27 | PRG ---
DATE OF SERVICE: 11/30/2018 SUBJECTIVE: Ms. Schultz is doing well. She is going to see Dr. Yuen today. She has had no further biliary drainage in her wound. Denies any fever or chills. OBJECTIVE: VITAL SIGNS: She is afebrile. Heart rate 94, respirations 20, oxygen saturation 98% on room air, and blood pressure 144/65. CARDIOVASCULAR SYSTEM: S1 and S2 plus. RESPIRATORY SYSTEM: Normal vesicular breath sounds. ABDOMEN: Soft and nontender. Wound with dressing. J-tube site is healthy. Bowel sounds heard in all quadrants. EXTREMITIES: Without cyanosis or clubbing. Trace edema. CENTRAL NERVOUS SYSTEM: Awake and responsive. Generalized weakness. LABORATORY DATA: Laboratory values done this morning shows a white count of 5.6, H and H are 8.7 and 28.9. Sodium 142, potassium 3.8, BUN and creatinine are 18 and 0.67. Blood sugars are 140, 133, 138, 146, and 155. IMPRESSION: 1. Abdominal wound requiring wound care. 2. Gastric leak requiring surgical intervention. 3. Diabetes mellitus, type 2. 4. Hypertension. 5. Dyslipidemia. 6. Coronary artery disease. 7. Depression and anxiety. PLAN: 1. Continue current medications. 2. J-tube feeding. 3. Wound care. 4. Accu-Cheks with sliding scale coverage. 5. Routine laboratory values. 6. Activity as tolerated. 7. Monitor for any signs of infection or drainage from the abdominal wound. Job ID: [id number]
[2018-11-30] MEDS: Ezetimibe 10 MG TAB PER TUBE SCH (20:37)
[2018-11-30] MEDS: Calcium Carbonate 500 MG ChewTAB PER TUBE SCH (20:37)
[2018-11-30] MEDS: Famotidine 20 MG TAB PER TUBE SCH (20:38)
[2018-11-30] MEDS: Rosuvastatin 10 MG TAB PER TUBE SCH (20:39)
[2018-12-01] MEDS: Gabapentin 300 MG CAP PO SCH ×2 (08:55→20:33)
[2018-12-01] MEDS: Pantoprazole 40 MG VIAL IVP SCH ×2 (08:55→20:34)
[2018-12-01] MEDS: Saccharomyces boulardii 250 MG CAP PER TUBE SCH (08:55)
[2018-12-01] MEDS: Loratadine 10 MG TAB PER TUBE SCH (08:55)
[2018-12-01] MEDS: Lisinopril 10 MG TAB PER TUBE SCH (08:55)
[2018-12-01] MEDS: Fenofibrate Nanocrystallized 145 MG TAB PER TUBE SCH (08:55)
[2018-12-01] MEDS: Lantus 1000 UNITS/10 ML VIAL SC SCH ×2 (08:55→20:33)
[2018-12-01] MEDS: Carvedilol 3.125 MG TAB PER TUBE SCH ×2 (08:55→16:50)
[2018-12-01] MEDS: Multivitamin W/ Minerals 1 TAB PER TUBE SCH (08:55)
[2018-12-01] MEDS: Sodium Chloride 0.9% (PF) 10 ML VIAL FS PRN (08:55)
[2018-12-01] MEDS: Aspirin Chewable 81 MG TAB PER TUBE SCH (08:55)
[2018-12-01] MEDS: Hydrocodone-Acetamin 15 ML UDCUP PER TUBE PRN ×2 (09:14→16:49)
--- NOTE | 2018-12-01 14:07 | PRG ---
DATE OF SERVICE: 12/01/2018 SUBJECTIVE: Ms. Schultz is doing well. She saw Dr. Yuen yesterday, and he has cleared her to go home with home health for wound care and continued J-tube feeding. She has chosen [facility], and nursing is making arrangement. Dr. Yuen will be following the home health as if there are any issues with the wound. He is the one to address it. The patient states that she does need refills on her medications, and I am going to send it to the [facility]. I advised her that I cannot send the liquid hydrocodone in as it is a controlled substance, and I cannot do it electronically from the system. OBJECTIVE: VITAL SIGNS: She is afebrile, heart rate 84, respirations 18, oxygen saturation 98% on room air, and blood pressure 132/65. CARDIOVASCULAR SYSTEM: S1 and S2 plus. RESPIRATORY SYSTEM: Normal vesicular breath sounds. ABDOMEN: Soft. Abdominal wound with dressing. J-tube site is healthy. EXTREMITIES: Without cyanosis or clubbing. Trace edema. CENTRAL NERVOUS SYSTEM: Awake and responsive. Generalized weakness. LABORATORY DATA: Blood sugars are 146, 155, 90, 109 and 130. IMPRESSION: 1. Diabetes mellitus, type 2. 2. Hypertension. 3. Dyslipidemia. 4. Coronary artery disease. 5. Depression and anxiety. 6. Gastric leak, status post bariatric surgery, requiring the patient to be n.p.o. and J-tube placement and much improved deconditioning. PLAN: 1. Continue wound care per Dr. Yuen's instructions. 2. Arrange home health to do wound care as well as do her tube feedings with Glucerna 1.5 at 40 mL an hour. 3. Outpatient followup with Dr. Yuen. She has an appointment in 2 weeks. 4. All home health orders and request to go to Dr. Yuen. 5. Discussed with the patient in detail. Job ID: [id number]
[2018-12-01] MEDS: Ezetimibe 10 MG TAB PER TUBE SCH (20:32)
[2018-12-01] MEDS: Famotidine 20 MG TAB PER TUBE SCH (20:32)
[2018-12-01] MEDS: Calcium Carbonate 500 MG ChewTAB PER TUBE SCH (20:32)
[2018-12-01] MEDS: Rosuvastatin 10 MG TAB PER TUBE SCH (20:34)
[2018-12-02] MEDS: Pantoprazole 40 MG VIAL IVP SCH ×2 (08:40→20:37)
[2018-12-02] MEDS: Lisinopril 10 MG TAB PER TUBE SCH (08:41)
[2018-12-02] MEDS: Saccharomyces boulardii 250 MG CAP PER TUBE SCH (08:41)
[2018-12-02] MEDS: Gabapentin 300 MG CAP PO SCH ×2 (08:41→20:36)
[2018-12-02] MEDS: Fenofibrate Nanocrystallized 145 MG TAB PER TUBE SCH (08:41)
[2018-12-02] MEDS: Multivitamin W/ Minerals 1 TAB PER TUBE SCH (08:41)
[2018-12-02] MEDS: Aspirin Chewable 81 MG TAB PER TUBE SCH (08:41)
[2018-12-02] MEDS: Loratadine 10 MG TAB PER TUBE SCH (08:42)
[2018-12-02] MEDS: Carvedilol 3.125 MG TAB PER TUBE SCH ×2 (08:42→17:55)
[2018-12-02] MEDS: Lantus 1000 UNITS/10 ML VIAL SC SCH ×2 (08:42→20:36)
[2018-12-02] MEDS: Hydrocodone-Acetamin 15 ML UDCUP PER TUBE PRN ×2 (11:47→20:35)
[2018-12-02] MEDS: Calcium Carbonate 500 MG ChewTAB PER TUBE SCH (20:36)
[2018-12-02] MEDS: Famotidine 20 MG TAB PER TUBE SCH (20:36)
[2018-12-02] MEDS: Ezetimibe 10 MG TAB PER TUBE SCH (20:36)
[2018-12-02] MEDS: Rosuvastatin 10 MG TAB PER TUBE SCH (20:37)
[2018-12-03] MEDS: Carvedilol 3.125 MG TAB PER TUBE SCH ×2 (09:30→16:20)
[2018-12-03] MEDS: Fenofibrate Nanocrystallized 145 MG TAB PER TUBE SCH (09:31)
[2018-12-03] MEDS: Aspirin Chewable 81 MG TAB PER TUBE SCH (09:31)
[2018-12-03] MEDS: Lantus 1000 UNITS/10 ML VIAL SC SCH ×2 (09:31→22:38)
[2018-12-03] MEDS: Gabapentin 300 MG CAP PO SCH ×2 (09:31→22:17)
[2018-12-03] MEDS: Lisinopril 10 MG TAB PER TUBE SCH (09:32)
[2018-12-03] MEDS: Multivitamin W/ Minerals 1 TAB PER TUBE SCH (09:32)
[2018-12-03] MEDS: Loratadine 10 MG TAB PER TUBE SCH (09:32)
[2018-12-03] MEDS: Pantoprazole 40 MG VIAL IVP SCH ×2 (09:33→22:21)
[2018-12-03] MEDS: Sodium Chloride 0.9% (PF) 10 ML VIAL FS PRN (09:33)
[2018-12-03] MEDS: Saccharomyces boulardii 250 MG CAP PER TUBE SCH (09:33)
[2018-12-03] MEDS: Hydrocodone-Acetamin 15 ML UDCUP PER TUBE PRN ×2 (09:34→16:20)
[2018-12-03] MEDS: Ezetimibe 10 MG TAB PER TUBE SCH (22:17)
[2018-12-03] MEDS: Famotidine 20 MG TAB PER TUBE SCH (22:17)
[2018-12-03] MEDS: Rosuvastatin 10 MG TAB PER TUBE SCH (22:18)
[2018-12-03] MEDS: Calcium Carbonate 500 MG ChewTAB PER TUBE SCH (22:19)
[2018-12-04] MEDS: Fenofibrate Nanocrystallized 145 MG TAB PER TUBE SCH (09:06)
[2018-12-04] MEDS: Aspirin Chewable 81 MG TAB PER TUBE SCH (09:06)
[2018-12-04] MEDS: Carvedilol 3.125 MG TAB PER TUBE SCH ×2 (09:06→17:26)
[2018-12-04] MEDS: Lantus 1000 UNITS/10 ML VIAL SC SCH ×2 (09:06→21:36)
[2018-12-04] MEDS: Gabapentin 300 MG CAP PO SCH ×2 (09:06→21:33)
[2018-12-04] MEDS: Multivitamin W/ Minerals 1 TAB PER TUBE SCH (09:08)
[2018-12-04] MEDS: Loratadine 10 MG TAB PER TUBE SCH (09:08)
[2018-12-04] MEDS: Lisinopril 10 MG TAB PER TUBE SCH (09:08)
[2018-12-04] MEDS: Saccharomyces boulardii 250 MG CAP PER TUBE SCH (09:09)
[2018-12-04] MEDS: Pantoprazole 40 MG VIAL IVP SCH ×2 (09:09→21:36)
[2018-12-04] MEDS: Sodium Chloride 0.9% (PF) 10 ML VIAL FS PRN (09:09)
--- NOTE | 2018-12-04 15:47 | PRG ---
DATE OF SERVICE: 12/04/2018 SUBJECTIVE: Ms. Schultz is doing well. Denies any complaints. Resting comfortably. She is hoping her insurance approves coverage of the tube feeding and the pump, so she can go home. Wound is improving and drying out. Denies any pain. She is staying active. OBJECTIVE: VITAL SIGNS: She is afebrile, heart rate 87, respirations 18, oxygen saturation 98% on room air, blood pressure 148/67. CARDIOVASCULAR SYSTEM: S1 and S2 plus. RESPIRATORY SYSTEM: Normal vesicular breath sounds. ABDOMEN: Soft, nontender. Bowel sounds heard in all quadrants. J-tube site is healthy. Abdominal wound with dressing. EXTREMITIES: Without cyanosis or clubbing. Trace edema. CENTRAL NERVOUS SYSTEM: Awake and responsive. Generalized weakness. LABORATORY DATA: Blood sugars are 108, 90, 93, 105 and 131. IMPRESSION: 1. Diabetes mellitus, type 2. 2. Hypertension. 3. Dyslipidemia. 4. Coronary artery disease. 5. Depression and anxiety. 6. Gastric leak status post bariatric surgery. 7. Abdominal wound requiring wound care. PLAN: 1. Continue current medications. 2. Tube feeding. 3. Wound care. 4. Accu-Cheks with sliding scale coverage. 5. Continue current medications. 6. Await insurance coverage of her going home with Home Health, tube feeding, and outpatient followup with Dr. Yuen for akil tiwari. Job ID: [id number]
[2018-12-04] MEDS: Hydrocodone-Acetamin 15 ML UDCUP PER TUBE PRN ×2 (17:26→23:45)
[2018-12-04] MEDS: Ezetimibe 10 MG TAB PER TUBE SCH (21:34)
[2018-12-04] MEDS: Calcium Carbonate 500 MG ChewTAB PER TUBE SCH (21:34)
[2018-12-04] MEDS: Rosuvastatin 10 MG TAB PER TUBE SCH (21:34)
[2018-12-04] MEDS: Famotidine 20 MG TAB PER TUBE SCH (21:34)
[2018-12-05 00:22] VITALS: BMI 28.8
[2018-12-05] MEDS: Carvedilol 3.125 MG TAB PER TUBE SCH ×2 (08:47→18:06)
[2018-12-05] MEDS: Saccharomyces boulardii 250 MG CAP PER TUBE SCH (08:47)
[2018-12-05] MEDS: Fenofibrate Nanocrystallized 145 MG TAB PER TUBE SCH (08:47)
[2018-12-05] MEDS: Aspirin Chewable 81 MG TAB PER TUBE SCH (08:47)
[2018-12-05] MEDS: Multivitamin W/ Minerals 1 TAB PER TUBE SCH (08:47)
[2018-12-05] MEDS: Gabapentin 300 MG CAP PO SCH ×2 (08:48→20:52)
[2018-12-05] MEDS: Ondansetron PF 4 MG/2 ML Vial IVP PRN (08:48)
[2018-12-05] MEDS: Loratadine 10 MG TAB PER TUBE SCH (08:48)
[2018-12-05] MEDS: Pantoprazole 40 MG VIAL IVP SCH ×2 (08:48→20:53)
[2018-12-05] MEDS: Lisinopril 10 MG TAB PER TUBE SCH (08:48)
[2018-12-05] MEDS: Lantus 1000 UNITS/10 ML VIAL SC SCH ×2 (08:49→20:52)
[2018-12-05] MEDS: Hydrocodone-Acetamin 15 ML UDCUP PER TUBE PRN ×2 (09:21→18:06)
[2018-12-05] MEDS ORDERED: Sodium Chloride 0.9% 10 ML ONE (20:06)
[2018-12-05] MEDS: Calcium Carbonate 500 MG ChewTAB PER TUBE SCH (20:51)
[2018-12-05] MEDS: Ezetimibe 10 MG TAB PER TUBE SCH (20:52)
[2018-12-05] MEDS: Famotidine 20 MG TAB PER TUBE SCH (20:52)
[2018-12-05] MEDS: Rosuvastatin 10 MG TAB PER TUBE SCH (20:53)
[2018-12-06] MEDS ORDERED: Sodium Chloride 0.9% 20 ML ONE (07:47)
[2018-12-06] MEDS: Lantus 1000 UNITS/10 ML VIAL SC SCH ×2 (08:59→21:34)
[2018-12-06] MEDS: Fenofibrate Nanocrystallized 145 MG TAB PER TUBE SCH (08:59)
[2018-12-06] MEDS: Multivitamin W/ Minerals 1 TAB PER TUBE SCH (08:59)
[2018-12-06] MEDS: Saccharomyces boulardii 250 MG CAP PER TUBE SCH (08:59)
[2018-12-06] MEDS: Gabapentin 300 MG CAP PO SCH ×2 (08:59→21:34)
[2018-12-06] MEDS: Lisinopril 10 MG TAB PER TUBE SCH (08:59)
[2018-12-06] MEDS: Aspirin Chewable 81 MG TAB PER TUBE SCH (09:00)
[2018-12-06] MEDS: Sodium Chloride 0.9% (PF) 10 ML VIAL FS PRN ×2 (09:00→21:23)
[2018-12-06] MEDS: Pantoprazole 40 MG VIAL IVP SCH ×2 (09:00→21:23)
[2018-12-06] MEDS: Carvedilol 3.125 MG TAB PER TUBE SCH ×2 (09:00→17:55)
[2018-12-06] MEDS: Loratadine 10 MG TAB PER TUBE SCH (09:00)
[2018-12-06] MEDS: Ondansetron PF 4 MG/2 ML Vial IVP PRN (09:15)
[2018-12-06] MEDS: HumaLOG 300 UNITS/3 ML VIAL SC PRN (12:56)
--- NOTE | 2018-12-06 13:44 | PRG ---
DATE OF SERVICE: 12/02/2018 SUBJECTIVE: Ms. Schultz is doing the same. Denies any complaints. Trying to get her to discharge home with home health and tube feeding, trying to get her insurance to cover it. As a precaution, [facility] everything is arranged. OBJECTIVE: VITAL SIGNS: She is afebrile. Heart rate is 83, respirations 18, oxygen saturation 98% on room air, and blood pressure 132/68. CARDIOVASCULAR: S1 and S2 plus. RESPIRATORY: Normal vesicular breath sounds. ABDOMEN: Soft, nontender. Bowel sounds heard in all quadrants. J-tube site is healthy. Abdominal wound with dressing. EXTREMITIES: Trace edema. CENTRAL NERVOUS SYSTEM: Awake and responsive. Generalized weakness. Otherwise nonfocal. IMPRESSION: 1. Diabetes mellitus, type 2. 2. Hypertension. 3. Dyslipidemia. 4. Coronary artery disease. 5. Depression and anxiety. 6. Gastric leak, requiring J-tube feeding and no p.o. intake to give her stomach rest. PLAN: 1. Continue current medications. 2. Glucerna. 3. Accu-Cheks with sliding scale coverage. 4. Wound care. 5. J-tube care. 6. Activity as tolerated. 7. Await insurance authorization for her pump and her feedings. 8. Discharge medications sent in to her pharmacy. 9. She is to follow up with her PCP and her surgeon. Job ID: [id number]
--- NOTE | 2018-12-06 13:47 | PRG ---
DATE OF SERVICE: 12/06/2018 SUBJECTIVE: Ms. Schultz is doing well, denies any complaints. Tolerating her feeding. Occasional diarrhea. Denies any fever or chills. Her heartburn is doing better. OBJECTIVE: VITAL SIGNS: She is afebrile. Heart rate 80, respirations 16, oxygen saturation 99% on room air, blood pressure 133/62. CARDIOVASCULAR SYSTEM: S1 and S2 plus. RESPIRATORY SYSTEM: Normal vesicular breath sounds. ABDOMEN: Soft, nontender. Bowel sounds heard in all quadrants. J-tube site is healthy. Abdominal wound with dressing. EXTREMITIES: Without cyanosis or clubbing. Trace edema. CENTRAL NERVOUS SYSTEM: Awake and responsive. Generalized weakness. LABORATORY DATA: Blood sugars are 134, 148, 185, and 98. IMPRESSION: 1. Diabetes mellitus, type 2. 2. Hypertension. 3. Dyslipidemia. 4. Coronary artery disease. 5. Depression and anxiety. 6. Gastric leak, requiring J-tube feeding for stomach rest. PLAN: 1. Continue current medications. 2. Nutritional support with J-tube feeding. She is on Glucerna 1.5 at 40 mL/h through her J-tube. She needs a pump to be able to do this. She cannot tolerate any rate more than 50 mL. We did try bolus feeding, which did not work, it caused significant nausea as well as reflux. She is unable to take anything orally, because she needs to give complete rest to her stomach, so that the gastric leak may heal. She does not have a swallowing issue. Once this is arranged, the patient is cleared to go home with home health and wound care. Job ID: [id number]
[2018-12-06] MEDS: Hydrocodone-Acetamin 15 ML UDCUP PER TUBE PRN (14:51)
[2018-12-06] MEDS ORDERED: Hydrocodone-Acetamin 15 ML UDCUP PER TUBE PRN (17:43)
[2018-12-06] MEDS ORDERED: Hydrocodone-Acetamin 15 ML UDCUP PER TUBE SCH (17:45)
[2018-12-06] MEDS: Rosuvastatin 10 MG TAB PER TUBE SCH (21:33)
[2018-12-06] MEDS: Famotidine 20 MG TAB PER TUBE SCH (21:34)
[2018-12-06] MEDS: Ezetimibe 10 MG TAB PER TUBE SCH (21:34)
[2018-12-06] MEDS: Calcium Carbonate 500 MG ChewTAB PER TUBE SCH (21:34)
[2018-12-07 07:35] VITALS: BP 128/58; TEMP 97.9
[2018-12-07] MEDS: Lantus 1000 UNITS/10 ML VIAL SC SCH (09:25)
[2018-12-07] MEDS: Fenofibrate Nanocrystallized 145 MG TAB PER TUBE SCH (09:26)
[2018-12-07] MEDS: Gabapentin 300 MG CAP PO SCH (09:26)
[2018-12-07] MEDS: Aspirin Chewable 81 MG TAB PER TUBE SCH (09:26)
[2018-12-07] MEDS: Carvedilol 3.125 MG TAB PER TUBE SCH ×2 (09:26→16:45)
[2018-12-07] MEDS: Lisinopril 10 MG TAB PER TUBE SCH (09:26)
[2018-12-07] MEDS: Loratadine 10 MG TAB PER TUBE SCH (09:27)
[2018-12-07] MEDS: Multivitamin W/ Minerals 1 TAB PER TUBE SCH (09:27)
[2018-12-07] MEDS: Sodium Chloride 0.9% (PF) 10 ML VIAL FS PRN (09:27)
[2018-12-07] MEDS: Saccharomyces boulardii 250 MG CAP PER TUBE SCH (09:27)
[2018-12-07] MEDS: Pantoprazole 40 MG VIAL IVP SCH (09:27)
--- NOTE | 2018-12-07 14:51 | PRG ---
DATE OF SERVICE: 12/07/2018 SUBJECTIVE: Ms. Schultz is doing the same. Denies any complaints. She apparently had more pain and is requiring the hydrocodone now q.4 hours. She states the pain is more in the back. Insurance apparently will not cover her pump and so she is trying to see if she can rent one. Nursing is checking with Case Management to see if they will cover the feeding at least. OBJECTIVE: VITAL SIGNS: She is afebrile. Heart rate 78, respirations 16, oxygen saturation 99% on room air, blood pressure 128/58. CARDIOVASCULAR SYSTEM: S1 and S2 plus. RESPIRATORY SYSTEM: Normal vesicular breath sounds. ABDOMEN: Soft. Bowel sounds heard in all quadrants. Wound with dressing. J- tube site is healthy. EXTREMITIES: Without cyanosis or clubbing. CENTRAL NERVOUS SYSTEM: Awake and responsive. Generalized weakness. LABORATORY VALUES: Blood sugars are 153, 131, 139, and 151. IMPRESSION: 1. Diabetes mellitus, type 2. 2. Hypertension. 3. Dyslipidemia. 4. Coronary artery disease. 5. Depression and anxiety. 6. Gastric leak, requiring complete rest to the stomach, so she is only on J- tube feeding. PLAN: 1. Continue current medications. 2. Nutritional support. 3. Discharge planning. [facility] 5. Activity as tolerated. 6. Wound care. 7. J-tube care. 8. Discussed with the patient and spouse. All questions answered. Job ID: [id number]
== END 2018-12-07 17:30 | disposition home health service (06) | DRG 950 ==
LOC: NAV ACUTE 20:24
PROVIDERS: ADMIT Internal Medicine; ATTEND Internal Medicine
DX: Z48.815 Encounter for surgical aftercare following surgery on the digestive system (principal); I25.10 Atherosclerotic heart disease of native coronary artery without angina pectoris; E11.9 Type 2 diabetes mellitus without complications; I10 Essential (primary) hypertension; E78.5 Hyperlipidemia, unspecified; F41.9 Anxiety disorder, unspecified; F32.9 Major depressive disorder, single episode, unspecified; E66.01 Morbid (severe) obesity due to excess calories; Z95.1 Presence of aortocoronary bypass graft; Z98.51 Tubal ligation status; Z79.82 Long term (current) use of aspirin; Z79.899 Other long term (current) drug therapy; Z68.28 Body mass index [BMI] 28.0-28.9, adult; Z98.84 Bariatric surgery status
CPT/HCPCS: 36416; 80048; 85025; C9113; J2405

== ENCOUNTER 2023-11-12 07:41 | Outpatient (CLI) | payer OTHER | END 2023-11-12 07:42 | disposition home or self-care (01) | LOC: NAV CT 07:41 | PROVIDERS: ATTEND Surgery | DX: R10.12 Left upper quadrant pain (principal); K44.9 Diaphragmatic hernia without obstruction or gangrene; R19.00 Intra-abdominal and pelvic swelling, mass and lump, unspecified site; Z98.84 Bariatric surgery status | CPT/HCPCS: 36416; 74177; 80053; 83605; 85025; 87040; 87077; 87149; J0692; J2272; J2405; J3010; J7030 ==